=== PATIENT | female | born 1975 | race Caucasian/White ===

== ENCOUNTER 2019-09-28 23:15 | Emergency (ER) | payer SELFPAY ==
[~2019-09-28] VITALS: Ht 180.3 cm; Wt 90.9 kg
[2019-09-28 23:21] VITALS: Ht 180.3 cm; Wt 90.9 kg
[2019-09-28] MEDS ORDERED: SYNTHROID175 MCG PO (23:22)
[2019-09-28] MEDS ORDERED: LASIX20 MG PO (23:22)
[2019-09-28] MEDS ORDERED: METOPROLOL TART50 MG PO (23:22)
[2019-09-28] MEDS ORDERED: COUMADIN10 MG PO (23:23)
[2019-09-28] MEDS ORDERED: TOPAMAX50 MG PO (23:23)
[2019-09-28] MEDS ORDERED: PROZAC20 MG PO (23:24)
[2019-09-28] MEDS ORDERED: BAYER CHEWABLE81 MG PO (23:24)
[2019-09-29] MEDS ORDERED: VIBRAMYCIN 100100 MG PO (00:07)
[2019-09-29] MEDS ORDERED: VOLTAREN75 MG PO (00:07)
[2019-09-29] MEDS ORDERED: LEVOXYL175 MCG PO (00:07)
[2019-09-29] MEDS ORDERED: FUROSEMIDE20 MG PO (00:07)
[2019-09-29 00:55] VITALS: BP 142/88
== END 2019-09-29 00:55 | disposition home or self-care (01) ==
LOC: D.ER 23:15
DX: L03.211 Cellulitis of face (principal); I10 Essential (primary) hypertension; E03.9 Hypothyroidism, unspecified; Z72.0 Tobacco use; I25.2 Old myocardial infarction

== ENCOUNTER 2019-10-21 17:02 | Emergency (ER) | payer SELFPAY ==
[~2019-10-21] VITALS: Ht 180.3 cm; Wt 90.9 kg
[~2019-10-21 17:02] MED LIST: BAYER CHEWABLE81 MG PO; COUMADIN10 MG PO; FUROSEMIDE20 MG PO; LASIX20 MG PO; LEVOXYL175 MCG PO; METOPROLOL TART50 MG PO; PROZAC20 MG PO; SYNTHROID175 MCG PO; TOPAMAX50 MG PO; VIBRAMYCIN 100100 MG PO; VOLTAREN75 MG PO
[2019-10-21 17:14] VITALS: BP 125/70; Ht 180.3 cm; Wt 90.9 kg
[2019-10-21] MEDS ORDERED: CIPRODEX OTIC7.5 ML RIGHT EAR (17:25)
[2019-10-21] MEDS ORDERED: FLOXIN 0.3 % OTI5 ML RIGHT EAR (17:45)
== END 2019-10-21 17:32 | disposition home or self-care (01) ==
LOC: D.ER 17:02
DX: H60.91 Unspecified otitis externa, right ear (principal); I10 Essential (primary) hypertension; E07.9 Disorder of thyroid, unspecified; R00.0 Tachycardia, unspecified; Z72.0 Tobacco use

== ENCOUNTER 2019-11-17 15:46 | Observation (INO) | payer BC ==
[2019-11-17] VITALS (8 sets, daily range): BP systolic 116–137; BP diastolic 62–78; Ht 180.3 cm; Wt 77.3 kg
[~2019-11-17] VITALS: Ht 180.3 cm; Wt 77.3 kg
[~2019-11-17 15:46] MED LIST changes: +CIPRODEX OTIC7.5 ML RIGHT EAR; +FLOXIN 0.3 % OTI5 ML RIGHT EAR
[2019-11-17 16:34] LABS: BASOPHILS 0.5 % (0-2); HEMOGLOBIN 13.5 g/dL (12-16); IMMATURE GRANULOCYTES 0.1 % (0-5); MCHC 32.1 g/dL (31.0-37.0); MCV 99.5 fL (80.0-100.0); MEAN PLATELET VOLUME 11.7 fL (7.4-10.4); MONOCYTES 6.5 % (2-11); NEUTROPHILS 56.9 % (40-80); PLATELET COUNT 266 10x3/uL (130-400); RBC 4.22 10x6/uL (4.00-5.40); RDW 14.6 % (11.5-14.5); WBC 8.6 10x3/uL (4.8-10.8)
[2019-11-17 16:53] LABS: APTT 35.7 SECONDS (22.8-39.4); INR 1.22 (0.85-1.17); PROTIME 15.3 SECONDS (11.6-15.0)
[2019-11-17 16:56] LABS: CALC OSMOLALITY 281 mosm/kg (275-300); CALCIUM 8.6 mg/dL (8.5-10.1); CARBON DIOXIDE 30.4 mmol/L (21.0-32.0); CHLORIDE - SERUM 105 mmol/L (98-107); CREATININE - SERUM 0.8 mg/dL (0.6-1.3); GLUCOSE 113 mg/dL (74-106); POTASSIUM - SERUM 3.4 mmol/L (3.5-5.1); SODIUM 141 mmol/L (136-145); UREA NITROGEN 12 mg/dL (7-18); eGFR NON AFRICAN AMERICAN 82 mL/min (90-120)
[2019-11-17 17:12] LABS: ALBUMIN 3.7 g/dL (3.4-5.0); ALKALINE PHOSPHATASE 72 U/L (30-120); ALT (SGPT) 45 U/L (10-68); BILIRUBIN - TOTAL 0.42 mg/dL (0.2-1.3); CKMB 0.2 U/L (0.0-3.6); CREATINE KINASE 96 UL (21-215); MAGNESIUM - SERUM 2.2 mg/dL (1.8-2.4); PROTEIN - SERUM 7.8 g/dL (6.4-8.2)
[2019-11-17 17:13] LABS: TROPONIN-I < 0.017 ng/mL (0.000-0.060)
--- NOTE | 2019-11-17 19:18 | NUR ---
Assume care of patient at this time for shift change, receive report from Kayce MEDINA. patient has admission orders, awaiting bed assignment
--- NOTE | 2019-11-17 19:45 | NUR ---
REPORT GIVEN TO ADAM RIVERA
[2019-11-18 00:36] VITALS: BP 120/60
[2019-11-18 01:34] LABS: CKMB 0.4 U/L (0.0-3.6); CREATINE KINASE 77 UL (21-215)
[2019-11-18 01:35] LABS: TROPONIN-I < 0.017 ng/mL (0.000-0.060)
[2019-11-18 02:46] VITALS: BP 116/59
--- NOTE | 2019-11-18 03:39 | NUR ---
REPORT TO CLEO MEDINA WHO ASSUMES CARE AT THIS TIME
[2019-11-18 06:27] LABS: BASOPHILS 0.5 % (0-2); EOSINOPHILS 6.7 % (0-7); HEMATOCRIT 40.6 % (36.0-48.0); HEMOGLOBIN 12.6 g/dL (12-16); IMMATURE GRANULOCYTES 0.2 % (0-5); LYMPHOCYTES 28.8 % (15-50); MCH 31.3 pg (26.0-34.0); MCV 100.7 fL (80.0-100.0); MEAN PLATELET VOLUME 11.8 fL (7.4-10.4); MONOCYTES 6.2 % (2-11); NEUTROPHILS 57.6 % (40-80); PLATELET COUNT 248 10x3/uL (130-400); RBC 4.03 10x6/uL (4.00-5.40); RDW 14.7 % (11.5-14.5); WBC 8.2 10x3/uL (4.8-10.8)
[2019-11-18 07:00] VITALS: BP 159/83
--- NOTE | 2019-11-18 07:10 | NUR ---
ASSUMED CARE OF PT AT THIS TIME. PT LAYING IN BED QUIETLY. S/O AT BEDSIDE. NO S/S OF DISTRESS NOTED. DENIES NEEDS.
[2019-11-18 07:13] LABS: ALBUMIN 3.3 g/dL (3.4-5.0); ALKALINE PHOSPHATASE 70 U/L (30-120); ALT (SGPT) 39 U/L (10-68); BILIRUBIN - TOTAL 0.22 mg/dL (0.2-1.3); CALCIUM 8.3 mg/dL (8.5-10.1); CARBON DIOXIDE 27.9 mmol/L (21.0-32.0); CHLORIDE - SERUM 106 mmol/L (98-107); CKMB 0.2 U/L (0.0-3.6); CREATINE KINASE 70 UL (21-215); CREATININE - SERUM 0.9 mg/dL (0.6-1.3); POTASSIUM - SERUM 3.8 mmol/L (3.5-5.1); PROTEIN - SERUM 7.3 g/dL (6.4-8.2); SODIUM 141 mmol/L (136-145); UREA NITROGEN 15 mg/dL (7-18); eGFR NON AFRICAN AMERICAN 71 mL/min (90-120)
[2019-11-18 07:15] LABS: CALC OSMOLALITY 285 mosm/kg (275-300); GLUCOSE 162 mg/dL (74-106); TROPONIN-I < 0.017 ng/mL (0.000-0.060)
--- NOTE | 2019-11-18 10:25 | NUR ---
PATIENT HAS BEEN DISCHARGED BY DR PATEL. DISCHARGE PAPERWORK AND INSTRUCTIONS PROVIDED. IV CATH REMOVED WITH CATH INTACT
[2019-11-18 10:26] VITALS: BP 155/87
--- NOTE | 2019-11-19 16:48 | HP ---
PATIENT: BEKAH ANDERSON MEDICAL RECORD: [id number] ACCOUNT: [id number] LOCATION:[facility]- : 71 ADMISSION DATE: 11/17/19 PCP: ANGELES NEWBERRY MD HISTORY AND PHYSICAL EXAMINATION ADMITTING DIAGNOSES: 1. Chest pain. 2. Hypertension. 3. Family history of coronary artery disease. HISTORY OF PRESENT ILLNESS: Ms. Anderson has had chest discomfort on and off for the past 3-4 days. It is relatively typical discomfort, a weight-like sensation on her anterior chest. This is not positional, not worsened with exercise or any motion. It will come on randomly, sometimes with exertion, sometimes not with exertion. Her EKG is with T-wave inversion inferiorly suggestive of ongoing inferior ischemia. She is currently pain free. Her troponin is normal. PHYSICAL EXAMINATION: CONSTITUTIONAL/GENERAL APPEARANCE: Well nourished, well developed, appears stated age. EYES: Lids and conjunctivae noninjected. No discharge. No pallor. ENT: Lips within normal limit. No cyanosis. No pallor. NECK: Carotid arteries, bilateral normal upstroke. No bruits. No thrills. No jugular venous pressure or distention. CERVICAL LYMPH NODES: Nontender. Nonenlarged. THYROID: Not enlarged. No nodules. CARDIOVASCULAR: Precordial exam, nondisplaced. No heaves or pericardial thrills. Rate and rhythm, regular. Heart sounds, normal S1, normal S2. No S3, no gallop, no rub. Systolic murmur, not heard. Diastolic murmur, not heard. RESPIRATORY: Respiratory effort, unlabored. Normal curvature. No thoracic deformity. No chest wall tenderness. Percussion, resonant. Auscultation, clear. No wheezes, no rales, no rhonchi. ABDOMEN: Soft, nondistended, nontender. No abdominal pain, no vomiting and normal appetite. MUSCULOSKELETAL: No joint tenderness, normal gait, normal tone. SKIN: Warm and dry. OVERALL IMPRESSION: Chest pain with abnormal ECG. Chest pain is relatively typical for angina. We will risk stratify with stress testing, Cardiolite imaging. Further care depends upon findings of the stress test. TRANSINT:[id number] Voice Confirmation ID: [id number] DOCUMENT ID: [id number] ALICIA PATEL MD at 1648 CC: [id number] DICTATION DATE: 11/17/19 184 SQL APPLICATION DEVELOPER: 11/17/192107 DIS IN 11/18/19 [facility] [address] [place] [address]
--- NOTE | 2019-11-19 16:48 | DS ---
PATIENT:BEKAH ANDERSON :71 MEDICAL RECORD: [id number] DISCHARGE SUMMARY ADMISSION DATE: 11/17/19 DISCHARGE DATE: 11/18/19 DATE OF DISCHARGE: 11/18/2019. DIAGNOSIS: Chest pain. HOSPITAL COURSE: Ms. Anderson presents with chest pain; however, rules out for a cardiac event with normal troponins. She has a normal EKG. She had no further episodes of chest pain discharged home to follow up in 1 day for a stress test as an outpatient. TRANSINT:[id number] Voice Confirmation ID: [id number] DOCUMENT ID: [id number] ALICIA PATEL MD at 1648 CC: [id number] DICTATION DATE: 11/18/19923 SKIFF OPERATOR: 11/19/19 0533 [place] IN 11/18/19 [id number] [place] [address]
== END 2019-11-18 10:27 | disposition home or self-care (01) ==
LOC: D.ER 15:46 → OBSVTIME 18:27 → D.SDCHOLD 18:27 → D.ER 11-18 10:27
PROVIDERS: Family Medicine; ADMIT Internal Medicine Interventional Cardiology; ATTEND Internal Medicine Interventional Cardiology
DX: R07.9 Chest pain, unspecified (principal); I10 Essential (primary) hypertension; Z82.49 Family history of ischemic heart disease and other diseases of the circulatory system; R94.31 Abnormal electrocardiogram [ECG] [EKG]

== ENCOUNTER → 2019-11-19 13:49 | Outpatient (CLI) | payer BC ==
[2019-11-17 18:46] VITALS: BMI 23.7
--- NOTE | ~2019-11-19 | ST ---
PATIENT:BEKAH ROQUE MEDICAL RECORD: [id number] SEX: F LOCATION:[facility] ORDER #: ADMISSION DATE: 11/19/19 AGE OF PATIENT: 44 REFERRING PHYSICIAN: INTERPRETING PHYSICIAN: ALICIA PATEL MD DATE OF SERVICE: 11/19/2019 STRESS TEST INDICATION: Chest pain, angina, and shortness of breath. She was exercised on standard Sky protocol for 4 minutes, terminated due to chest pain, shortness of breath with [address] depression in stage I. OVERALL IMPRESSION: Positive for inducible ischemia. TRANSINT:[id number] Voice Confirmation ID: [id number] DOCUMENT ID: [id number] ALICIA PATEL MD CC: [id number] DICTATION DATE: 11/20/19 1251 CHEMISTRY LAB INSTRUCTOR: 11/21/19 0347 [facility] CLI 11/19/[address] [address]
== END | disposition home or self-care (01) ==
LOC: D.HCCARDIO 13:49
PROVIDERS: ATTEND Internal Medicine Interventional Cardiology
DX: R07.9 Chest pain, unspecified (principal)

== ENCOUNTER 2019-11-30 08:22 | Outpatient (CLI) | payer BC ==
[~2019-11-30] VITALS: Ht 180.3 cm; Wt 109.1 kg
--- NOTE | ~2019-11-30 | OP ---
PATIENT NAME: BEKAH ROQUE MEDICAL RECORD: [id number] :71 LOCATION:[facility] ADMISSION DATE: SURGEON: ALICIA PATEL MD DATE OF OPERATION: 11/30/2019 PROCEDURES: 1. PTCA stent RCA. 2. PTCA stent left circumflex. 3. IFR RCA. 4. IFR left circumflex. 5. Left heart catheterization. 6. Selective coronary angiography. 7. Left ventriculogram. INDICATION: Angina and coronary artery disease. PROCEDURE IN DETAIL: After informed consent was obtained and after a detailed description of risks, benefits as well as alternative therapies, the patient elected to proceed with angiogram and angioplasty. The right radial area was prepped and draped in normal sterile fashion. Right radial artery was cannulated via modified Seldinger technique with placement of 6-Tamazight sheath. All catheters exchanged through this sheath. FINDINGS: Left ventriculogram was performed in standard 30-degree TODD view, reveals global hypokinesis, ejection fraction in the 35-40% range. SELECTIVE CORONARY ANGIOGRAPHY: 1. Left main is with no significant angiographic disease. 2. Left anterior descending has multiple areas of 80% to 90% stenosis. 3. The left circumflex has a 70% stenosis in the mid vessel and IFR is abnormal. 4. Right coronary has an 80-85% stenosis in the mid vessel and IFR is abnormal. PTCA STENT OF THE RCA: The stent used is a 3.5 x 26 mm [place]. Result was 0% residual stenosis. PTCA STENT OF THE LEFT CIRCUMFLEX: The stent used was a 2.75 x 30 mm [place]. Result was 0% residual stenosis. OVERALL IMPRESSION: Successful PTCA stent of the RCA and left circumflex, both going from 70-85% initial stenosis to 0% residual. PLAN: PTCA stent of multiple areas in the LAD in the near future. TRANSINT:[id number] Voice Confirmation ID: [id number] DOCUMENT ID: [id number] ALICIA PATEL MD CC: [id number] DICTATION DATE: 11/30/19 1108 SALES ORDER CLERK: 11/30/192032 DEP CLI 11/30/19 [place] [address]
--- NOTE | ~2019-11-30 | HP ---
PATIENT: BEKAH ANDERSON MEDICAL RECORD: [id number] ACCOUNT: [id number] LOCATION:[facility] : 71 ADMISSION DATE: 11/30/19 PCP: ANGELES NEWBERRY MD HISTORY AND PHYSICAL EXAMINATION DATE OF SERVICE: 11/30/2019 DIAGNOSES: 1. Angina. 2. Abnormal stress test. 3. Hypertension. 4. Family history of coronary artery disease. HISTORY OF PRESENT ILLNESS: Mrs. Anderson began having chest pain, was relatively typical for angina, underwent stress testing which was abnormal, is now brought for cardiac catheterization. PHYSICAL EXAMINATION: CONSTITUTIONAL/GENERAL APPEARANCE: Well nourished, well developed, appears stated age. EYES: Lids and conjunctivae noninjected. No discharge. No pallor. ENT: Lips within normal limit. No cyanosis. No pallor. NECK: Carotid arteries, bilateral normal upstroke. No bruits. No thrills. No jugular venous pressure or distention. CERVICAL LYMPH NODES: Nontender. Nonenlarged. THYROID: Not enlarged. No nodules. CARDIOVASCULAR: Precordial exam, nondisplaced. No heaves or pericardial thrills. Rate and rhythm, regular. Heart sounds, normal S1, normal S2. No S3, no gallop, no rub. Systolic murmur, not heard. Diastolic murmur, not heard. RESPIRATORY: Respiratory effort, unlabored. Normal curvature. No thoracic deformity. No chest wall tenderness. Percussion, resonant. Auscultation, clear. No wheezes, no rales, no rhonchi. ABDOMEN: Soft, nondistended, nontender. No abdominal pain, no vomiting and normal appetite. MUSCULOSKELETAL: No joint tenderness, normal gait, normal tone. SKIN: Warm and dry. OVERALL IMPRESSION: Anginal symptomatology in an escalating fashion and abnormal stress test. We will proceed with coronary angiography. Further care depends upon findings of the angiography. TRANSINT:[id number] Voice Confirmation ID: [id number] DOCUMENT ID: [id number] ALICIA PATEL MD CC: [id number] DICTATION DATE: 11/30/19814 EXERCISE SCIENCE INTERNSHIP: 11/30/19917 [facility] [address] [place] [address]
--- NOTE | ~2019-11-30 | HEMODYNAMI ---
PATIENT:BEKAH ROQUE MEDICAL RECORD: [id number] : 71 LOCATION:[facility] ADMISSION DATE: 11/30/19 Generatedon:11/30/201911:10 Patient name: BEKAH ROQUE Patient #: [id number] SSN: [id number] : 1975 Date of study: 11/30/2019 Page: Of Hemodynamic Procedure Report Patient Data Patient Demographics Procedure consent was obtained First Name: BEKAH Gender: Female Last Name: JUDE : 1975 Patient #: [id number] Age: 44 year(s) Race: SSN: [id number] Additional ID: [id number] Contact details Address: [address] [place] [address] State: [place] City: [facility] Zip code: [address] Past Medical History Allergies: No known allergies Admission Admission Data Admission Date: 11/30/2019 Admission Time: 8:22 Arrival Date: 11/30/2019 Arrival Time: 0:00 Admit Source: Other Insurance Payor: Private health insurance [facility] #: [id number] Height (in.): 71 BSA: 2.28 (m2) Height (cm.): 180.34 BMI: 33.54 (kg/m2) Weight (lbs.): 240.5 Weight (kg.): 109.09 Lab Results Lab Result Date: 11/30/2019 Lab Result Time: 0:00 Biochemistry Name Units Result Min Max BUN mg/dl 14 --(--*-)-- 7 18 Creatinine mg/dl 0.8 --(-*--)-- 0.6 1.3 eGFR ml/min 82.16985 *-(----)-- 90 120 NONAFRICAN CBC Name Units Result Min Max Hematocrit % 42.6 --(*---)-- 42 54 Hemoglobin g/dl 13.9 --(*---)-- 13.5 17.5 Procedure Procedure Types Cath Procedure Diagnostic Procedure [facility] w/Coronaries FFR/IVUS FFR Initial Sedation Charges Moderate Sedation up to 30 minutes PCI Procedure Coronary Stent Coronary Stent Initial x2 Hemochron ACT Test Procedure Description Procedure Date Procedure Date: 11/30/2019 Procedure Start Time: 10:40 Procedure End Time: 11:08 Procedure Staff Name Function Epi Cao MD Performing Physician Vivien Hermosillo RT Monitor [facility] RT Scrub Colby Jimenez RN Nurse Procedure Data Cath Procedure Fluoroscopy Diagnostic fluoroscopy Total fluoroscopy Time: 6.3 time: 6.3 min min Diagnostic fluoroscopy Total fluoroscopy dose: 883 dose: 883 mGy mGy Contrast Material Contrast Material Type Amount (ml) Isovue 370 93 Entry Location Entry Primary Successful Side Size Upsize Upsize Entry Closure Jarquin ccessful Closure Location (Fr) 1 (Fr) 2 (Fr) Remarks Device Remarks Radial Right 6 Fr Mechanical artery Short Compression Estimated blood loss: 10 ml Diagnostic catheters Device Type Used For End Catheter Placement DIAGNOSTIC Cordova 110cm 5 Procedure Fr catheter ([id number]) Procedure Complications No complications Procedure Medications Medication Administration Route Dosage 0.9% NaCl I.V. 100 ml/hr Oxygen etCO2 Nasal cannula 2 l/min Heparin Flush Bag added to field 2 bags (1000units/500ml NS) Lidocaine 2% added to field 20 Radial Cocktail added to field 1 syringe (Verapamil 2mg/Nitro 400mcg/Heparin 1500units) Versed I.V. 2 mg Fentanyl I.V. 100 mcg Versed I.V. 2 mg Fentanyl I.V. 100 mcg Versed I.V. 2 mg Radial Cocktail I.A. 1 syringe (Verapamil 2mg/Nitro 400mcg/Heparin 1500units) Versed I.V. 1 mg Heparin Bolus I.V. 4000 units Integrilin (Bolus I.V. 9.5 ml 2mg/ml) Versed I.V. 1 mg Plavix P.O. 600 mg Hemodynamics Rest BSA: 2.28 (m2) HGB: 13.9 (g/dl) O2 Consumption: Estimated: 227.56 (ml/min) O2 Co nsumption indexed: Estimated:99.81 (ml/min/m) Heart Rate: 71 (bpm) Snapshots Pre Cath Intra NCS Post Cath Vital Signs Time Heart Resp SPO2 etCO2 NIBP (mmHg) Rhythm Pain Sedation Rate (ipm) (%) (mmHg) Status Level (bpm) 10:02:22 75 12 99 0 161/91(121) NSR 0 (11) 10(A) , No pain 10:06:40 77 14 95 17.3 154/91(112) NSR 0 (11) 10(A) , No pain 10:11:06 74 15 97 30.2 119/79(98) NSR 0 (11) 10(A) , No pain 10:16:11 75 14 97 19.6 132/93(110) NSR 0 (11) 10(A) , No pain 10:21:29 81 13 97 39.2 137/95(120) NSR 0 (11) 10(A) , No pain 10:25:47 71 10 96 37 147/89(120) NSR 0 (11) 10(A) , No pain 10:30:09 78 14 96 40.8 154/90(116) NSR 0 (11) 10(A) , No pain 10:35:37 76 14 97 33.2 159/103(125) NSR 0 (11) 10(A) , No pain 10:39:53 73 12 96 33.9 137/95(120) NSR 0 (11) 10(A) , No pain 10:44:11 77 14 92 33.1 129/78(99) NSR 0 (11) 10(A) , No pain 10:48:25 74 14 93 39.2 112/73(99) NSR 0 (11) 9(A) , No pain 10:52:41 75 20 92 13.5 111/66(102) NSR 0 (11) 10(A) , No pain 10:56:49 69 18 93 8.3 120/71(101) NSR 0 (11) 10(A) , No pain 11:01:05 78 10 92 33.9 126/83(93) NSR 0 (11) 10(A) , No pain 11:06:04 71 18 94 40.7 Measuring NSR 0 (11) 10(A) , No pain 11:06:08 73 18 94 43 138/69(95) NSR 0 (11) 10(A) , No pain Medications Time Medication Route Dose Verified Delivered Reason Not es Effectiveness by by 10:04:41 0.9% NaCl I.V. 100 Colby Colby Per physician ml/hr Barbara Jimenez RN RN 10:04:50 Oxygen etCO2 2 l/min Colby Colby for low 02 sats Nasal Lorigan Barbara cannula RN RN 10:05:02 Heparin Flush added 2 bags Colby Colby used for Bag to Barbara Jimenez procedure (1000units/500ml field RN RN NS) 10:05:12 Lidocaine 2% added 20ml Colby Colby for local to vial Lorigan Lorigan anesthetic field RN RN 10:05:21 Radial Cocktail added 1 Colby Colby for local (Verapamil to syringe Lorigan Lorigan anesthetic 2mg/Nitro field RN RN 400mcg/Heparin 1500units) 10:35:03 Fentanyl I.V. 100 mcg Colby Colby for sedation Barbara Jimenez RN RN 10:35:54 Versed I.V. 2 mg Colby Colby for sedation Barbara Jimenez RN RN 10:39:07 Versed I.V. 2 mg Colby Colby for sedation Barbara Jimenez RN RN 10:39:48 Fentanyl I.V. 100 mcg Colby Colby for sedation Barbara Jimenez RN RN 10:41:28 Versed I.V. 2 mg Colby Colby for sedation Barbara Jimenez RN RN 10:42:21 Radial Cocktail I.A. 1 Colby Epi for (Verapamil syringe Lorigan Tauth MD vasodilation 2mg/Nitro RN 400mcg/Heparin 1500units) 10:42:58 Versed I.V. 1 mg Colby Colby for sedation Barbara Jimenez RN RN 10:49:36 Heparin Bolus I.V. 4000 Colby Colby for units Lorigan Lorirena anticoagulation RN RN 10:50:02 Integrilin I.V. 9.5 ml Colby Colby for (Bolus 2mg/ml) Barbara Jimenez antiplatelet RN RN therapy 11:00:10 Versed I.V. 1 mg Colby Colby for sedation Barbara Jimenez RN RN 11:05:44 Plavix P.O. 600 mg Colby Colby for Barbara Jimenez antiplatelet RN RN therapy Procedure Log Time Note 9:36:31 Informed consent obtained and on chart 9:36:48 Procedure Status Elective Heart Cath (OP). 9:36:49 Time tracking: Regular hours (M-F 7:00 - 5:00) 9:36:52 Plan of Care:Hemodynamics will remain stable., Cardiac rhythm will remain stable., Comfort level will be maintained., Respiratory function will remain adequate., Patient/ family verbilizes understanding of procedure., Procedure tolerated without complication., Recovers from procedure without complications.. 9:40:53 Colby Jimenez RN sent for patient. Start room use. 9:45:14 Alarms reviewed by R. N. 9:45:15 Sharps counted by scrub and verified by R.N. 9:45:18 Risk of Mortality: .1 9:45:21 Risk of blood transfusion: .1 9:45:24 Risk of ANGELES: .1 9:45:36 Stress Test: no; N/A terminated due to chest pain 9:45:40 Lab results completed and on chart. 9:46:08 Lab Result : BUN 14 mg/dl 9:46:08 Lab Result : Creatinine 0.8 mg/dl 9:46:08 Lab Result : eGFR NONAFRICAN 82.82506 ml/min 9:46:08 Lab Result : Hemoglobin 13.9 g/dl 9:46:08 Lab Result : Hematocrit 42.6 % 9:46:37 Diagnostic Cath Status : Elective 9:46:57 Arrival Date: 11/30/2019 12:00:00 AM 9:46:57 Admit Source: Other 9:47:18 Insurance Payor : Private health insurance 9:47:21 Patient Height : 71 inches 9:47:28 Patient Weight : 240.5 lbs 9:49:38 H&P Date Dictated: 11/30/2019 Within 30 days and on chart.. 9:49:40 Pre-procedure instructions explained to patient. 9:49:40 Pre-op teaching completed and patient verbalized understanding. 9:49:42 Patient NPO since Midnight. 9:49:48 Patient allergic to No known allergies 9:53:20 Patient received from Pre/Post Procedure Room to CCL 1 Alert and oriented. Tansferred to table in Supine position. 9:53:21 Warm blankets applied, and naomi hugger turned on for patient comfort. 9:53:22 Correct patient and procedure confirmed by team. 9:53:24 ECG and BP/O2 sat monitors applied to patient. 9:53:29 Family in waiting room. 9:53:34 Is the patient allergic to Iodine/contrast media? No. 9:53:36 Was the patient premedicated? N/A 9:53:38 Is patient on blood thinner?No 9:53:40 Patient diabetic? No. 9:53:41 If diabetic: On Metformin? N/A 10:01:05 Vital chart was started 10:01:11 Rhythm: sinus rhythm 10:01:14 Baseline sample Acquired. 10:01:17 Full Disclosure recording started 10:04:41 0.9% NaCl 100 ml/hr I.V. was administered by Colby Jimenez RN; Per physician; Verbal order read back and verified. 10:04:50 Oxygen 2 l/min etCO2 Nasal cannula was administered by Colby Jimenez RN; for low 02 sats; Verbal order read back and verified. 10:05:02 Heparin Flush Bag (1000units/500ml NS) 2 bags added to field was administered by Colby Jimenez RN; used for procedure; Verbal order read back and verified. 10:05:12 Lidocaine 2% 20ml vial added to field was administered by Colby Jimenez RN; for local anesthetic; Verbal order read back and verified. 10:05:21 Radial Cocktail (Verapamil 2mg/Nitro 400mcg/Heparin 1500units) 1 syringe added to field was administered by Colby Jimenez RN; for local anesthetic; Verbal order read back and verified. 10:06:13 Patient not . Patient has had hysterectomy. 10:06:15 ----Pre-sedation anethsthesia assessment.---- 10:06:19 Previous problem with sedation/anesthesia? No ? 10:06:21 Snore? Yes 10:06:22 Sleep apnea? No 10:06:24 Deviated septum? No 10:06:25 Opens mouth fully? Yes 10:06:26 Sticks out tongue? Yes 10:06:28 Airway obstruction? No ? 10:06:29 Dentures? No ? 10:06:33 Pre procedure: right dorsailis pedis pulse 2+ Normal; easily identifiable; not easily obliterated 10:06:36 Modified David's test Ulnar < 7 seconds 10:06:38 Patient pain scale 0/10 ?. 10:06:47 IV patent on arrival in right antecubital with 0.9% NaCl at [facility]. 10:06:55 Right Radial & Right Groin area was prepped with chlora-prep and draped in sterile fashion 10:07:01 Baseline sample Acquired. 10:07:11 Use device set Radial Dx or PCI 10:07:13 ACIST Syringe (75392) opened to sterile field. 10:07:13 Medline Cath Pack ([id number]) opened to sterile field. 10:07:14 Bag Decanter (2002S) opened to sterile field. 10:07:14 ACIST Hand Control (47024) opened to sterile field. 10:07:15 ACIST Manifold (87465) opened to sterile field. 10:07:16 Tegaderm 4 x 4 (1626W) opened to sterile field. 10:07:17 MBrace Wrist Support ([id number]) opened to sterile field. 10:07:19 EMERALD Guide Wire (138-749) opened to sterile field. 10:07:21 SHEATH 6FR RAIN (6615081) opened to sterile field. 10:34:55 --------ALL STOP TIME OUT------ 10:34:55 Final Timeout: patient, procedure, and site verified with staff and physician. All members of the team are in agreement. 10:34:59 Right Radial & Right Groin site verified by team. 10:35:03 Fentanyl 100 mcg I.V. was administered by Colby Jimenez RN; for sedation; Verbal order read back and verified. 10:35:07 Fire Safety Assessment: A--An alcohol-based skin anteseptic being used preoperatively., C--Open oxygen or nitrous oxide is being used., D--An ESU, laser, or fiber-optic light is being used. 10:35:13 Physical assessment completed. ASA score P 2 - A patient with mild systemic disease as per Epi Cao MD. 10:35:17 2) 60-89 Mildly reduced kidney function, and other findings (as for stage 1) point to kidney disease. 10:35:22 Maximum allowable contrast dose (3.7 X eGFR X 0.75)227 ml. 10:35:28 Sedation plan: IV Moderate Sedation Medication:Versed, Fentanyl 10:35:54 Versed 2 mg I.V. was administered by Colby Jimenez RN; for sedation; Verbal order read back and verified. 10:39:05 Procedure started. 10:39:07 Versed 2 mg I.V. was administered by Colby Jimenez RN; for sedation; Verbal order read back and verified. 10:39:48 Fentanyl 100 mcg I.V. was administered by Colby Jimenez RN; for sedation; Verbal order read back and verified. 10:40:33 Local anesthetic to right radial artery with Lidocaine 2% by Epi Cao MD.INITIAL ACCESS ONLY 10:41:15 A 6 Fr Short sheath was inserted into the Right Radial artery 10:41:28 Versed 2 mg I.V. was administered by Colby Jimenez RN; for sedation; Verbal order read back and verified. 10:42:13 A DIAGNOSTIC Cordova 110cm 5 Fr catheter ([id number]) was advanced over the wire and used for Procedure. 10:42:18 LV gram done using TODD 10:42:21 Radial Cocktail (Verapamil 2mg/Nitro 400mcg/Heparin 1500units) 1 syringe I.A. was administered by Epi Cao MD; for vasodilation; Verbal order read back and verified. 10:42:21 Injector settings: Ml/sec: 5, Volume: 15, 10:42:58 Versed 1 mg I.V. was administered by Colby Jimenez RN; for sedation; Verbal order read back and verified. 10:43:08 EF : 40 % 10:43:27 RCA angiography performed. 10:43:30 Injector settings: Ml/sec: 3, Volume: 6, 10:44:14 Catheter removed. 10:44:33 GUIDE 6FR XBC 3 ([id number]) opened to sterile field. 10:44:34 6 Fr XBC 3 guide catheter was inserted over the wire 10:45:01 LCA angiography performed. 10:45:03 Injector settings: Ml/sec: 3, Volume: 6, 10:45:26 ACCDominant side:Co-Dominant 10:48:12 FFR/IFR wire advanced. 10:48:59 Wire removed. 10:49:15 J WIRE REINSERTED TO CANNULATE WITH CATHETER FULLY. 10:49:22 FFR/IFR wire advanced. 10:49:36 Heparin Bolus 4000 units I.V. was administered by Colby Jimenez RN; for anticoagulation; Verbal order read back and verified. 10:50:02 Integrilin (Bolus 2mg/ml) 9.5 ml I.V. was administered by Colby Jimenez RN; for antiplatelet therapy; Verbal order read back and verified. 10:50:14 mCirc lesion measured at .83 with IFR 10:50:25 Wire removed. 10:50:26 Guide catheter removed. 10:50:49 GUIDE 6FR AR 2.0 catheter ([id number]) opened to sterile field. 10:50:50 6 Fr AR 2 guide catheter was inserted over the wire 10:51:30 FFR/IFR wire advanced. 10:53:14 Wire advanced across lesion. 10:54:01 mRCA lesion measured at .82 with IFR 10:54:53 Pre PCI Site: [place] mRCA has 85% stenosis. 10:54:59 Pre PCI Site: [place] Circ has 70% stenosis. 10:57:36 Place stent Inflation Number: 1 A TUAN RX 3.5 x 22 stent ([id number]) was prepped and advanced across the Mid RCA . The stent was deployed at 15 ZAY for 0:00 (min:sec) . 10:58:24 Wire removed. 10:58:52 Guide catheter removed. 10:59:04 6 Fr XBC 3 guide catheter was inserted over the wire 10:59:29 CHOICE PT Extra Support 182cm wire ([id number]) opened to sterile field. 10:59:45 CHOICE ES 182 wire advanced. 11:00:10 Versed 1 mg I.V. was administered by Colby Jimenez RN; for sedation; Verbal order read back and verified. 11:01:40 Place stent Inflation Number: 1 A TUAN RX 2.75 x 30 stent ([id number]) was prepped and advanced across the Mid CX . The stent was deployed at 15 ZAY for 0:00 (min:sec) . 11:02:28 Stent catheter was removed intact over wire. 11:02:28 Wire removed. 11:02:29 Guide catheter removed. 11:02:32 ZEPHYR REGULAR TR BAND (907252) opened to sterile field. 11:03:53 Sheath removed intact; hemostasis achieved with Mechanical Compression to the Right Radial artery. 11:03:55 Procedure ended.(Physican Out) 11:04:04 Fluoroscopy time 06.30 minutes. 11:04:08 Flurop Dose total: 883 11:04:08 Fluoroscopy dose: 883 mGy 11:04:14 Dose Area Product 28268 mGy/cm. 11:04:19 Contrast amount:Isovue 370 93ml. 11:04:22 Maximum allowable dose exceeded? No. 11:04:23 Sharps counted by scrub and verified by R.N. 11:04:25 [place] band inflated with 10cc of air. 11:04:29 Post Procedure Pulses reassessed and unchanged 11:04:32 Post procedure: right dorsailis pedis pulse 2+ Normal; easily identifiable; not easily obliterated. 11:04:36 Post-procedure physical assessment completed. ASA score P 2 - A patient with mild systemic disease as per Epi Cao MD. 11:04:38 Post procedure rhythm: unchanged. 11:04:41 Estimated blood loss: 10 ml 11:04:42 Post procedure instruction explained to patient.Patient verbalizes understanding. 11:04:43 Patient needs reinforcement of post procedure teaching. 11:05:44 Plavix 600 mg P.O. was administered by Colby Jimenez RN; for antiplatelet therapy; Verbal order read back and verified. 11:05:56 Procedure type changed to Cath procedure, Diagnostic procedure, LHC, C w/Coronaries, FFR/IVUS, FFR Initial, Sedation Charges, Moderate Sedation up to 30 minutes, PCI procedure, Coronary Stent, Coronary Stent Initial x2, Hemochron ACT Test 11:07:49 Procedure and supply charges have been captured, reviewed, submitted and are correct. 11:07:52 Procedure Complication : No complications 11:07:55 Vital chart was stopped 11:07:56 [facility] Findings: MVD- PCI performed (see procedure note) 11:08:00 Operative report dictated upon procedure completion. 11:08:00 See physician's report for complete and final results. 11:08:02 Report given to Pre/Post Procedure Room. 11:08:06 Patient transfered to Pre/Post Procedure Room with Stretcher. 11:08:11 ACC-PCI Only Patient was given prescriptions, or instructed by Epi Cao MD to start/continue the following medications upon discharge: Plavix 11:08:14 Procedure ended. 11:08:14 Full Disclosure recording stopped 11:09:05 ACT drawn and resulted at (High) out of range seconds. (normal therapeutic range 180-240 seconds). 11:09:48 End room use (Document Last) 11:10:02 End room use (Document Last) 11:10:19 End room use (Document Last) Intervention Summary Intervention Notes Time ActionType Lesion and Equipment Used Action# Pressure Duration Attributes 10:57:36 Place stent Mid RCA TUAN RX 3.5 x 1 15 00:00 22 stent ([id number]) 11:01:40 Place stent Mid CX TUAN RX 2.75 x 1 15 00:00 30 stent ([id number]) Device Usage Item Name Manufacture Quantity Catalog Number Hospital Part Current M inimal Lot# / Charge Number Stock Stock Serial# Code ACIST Syringe Acist 1 14473 964925 493614 139869 2 0 (32395) Medical Systems Inc Medline Cath Medline 1 [id number] 064435 39576 417023 5 Pack ([id number]) Bag Decanter Microtek 1 2001S 517512 00564 864658 5 (2001S) Medical Inc. ACIST Hand Acist 1 32256 878019 612562 038272 5 Control Medical (99739) Systems Inc ACIST Manifold Acist 1 18010 344567 658385 807990 5 (70587) Medical Systems Inc Tegaderm 4 x 4 3M 1 1626W 072760 050621 208891 5 (1626W) MBrace Wrist Advanced 1 140-0250-00 553221 83572 130948 5 Support Vascular ([id number]) Dynamics EMERALD Guide Cardinal 1 502-455 971358 545762 085420 5 Wire (502-455) Health SHEATH 6FR Cardinal 1 5284303 991708 8862575 959798 5 RAIN (1679466) Health DIAGNOSTIC Terumo 1 40-5013 095109 924373 003577 5 Cordova 110cm 5 Fr catheter (306707) GUIDE 6FR XBC Cardinal 1 [id number] 590701 46360 612847 5 3 (15155848) Health GUIDE 6FR AR Medtronic 1 [id number] 525443 07692 295547 1 2.0 catheter (EL8IS98) TUAN RX 3.5 x Medtronic 1 [id number] 748159 8591110 132478 5 [id number] 22 stent ([id number]) CHOICE PT [place] 1 [id number] 409164 203641 923801 5 Extra Support Scientific 182cm wire ([id number]) TUAN RX 2.75 x Medtronic 1 [id number] 207687 3318789 215200 5 [id number] 30 stent ([id number]) ZEPHYR REGULAR Cardinal 1 403258 944738 8596677 113818 5 TR [facility] (974647) Signature Audit [place] Stage Time Signature Unsigned Intra-Procedure 11/30/2019 Vivien Hermosillo 11:10:02 AM RT(R) Intra-Procedure 11/30/2019 Colby 11:10:19 AM Barbara MEDINA Intra-Procedure 11/30/2019 Epi Cao 11:10:44 AM [facility] [address] [place] [address]
[2019-11-30 09:00] VITALS: BP 156/88; Ht 180.3 cm; Wt 109.1 kg
[2019-11-30 09:19] LABS: BASOPHILS 0.4 % (0-2); EOSINOPHILS 4.7 % (0-7); HEMATOCRIT 42.6 % (36.0-48.0); HEMOGLOBIN 13.9 g/dL (12-16); IMMATURE GRANULOCYTES 0.5 % (0-5); LYMPHOCYTES 31.6 % (15-50); MCH 31.8 pg (26.0-34.0); MCHC 32.6 g/dL (31.0-37.0); MCV 97.5 fL (80.0-100.0); MONOCYTES 5.7 % (2-11); NEUTROPHILS 57.1 % (40-80); PLATELET COUNT 257 10x3/uL (130-400); RBC 4.37 10x6/uL (4.00-5.40); RDW 13.8 % (11.5-14.5); WBC 8.1 10x3/uL (4.8-10.8)
[2019-11-30 09:29] LABS: ALT (SGPT) 42 U/L (10-68); CALC OSMOLALITY 278 mosm/kg (275-300); CALCIUM 8.6 mg/dL (8.5-10.1); CARBON DIOXIDE 26.9 mmol/L (21.0-32.0); CHLORIDE - SERUM 104 mmol/L (98-107); CHOL - HDL RATIO 5.5 ratio (2.3-4.1); CHOLESTEROL, TOTAL 232 mg/dL (0-200); CREATININE - SERUM 0.8 mg/dL (0.6-1.3); GLUCOSE 136 mg/dL (74-106); HDL CHOLESTEROL 42 mg/dL (32-96); LDL CHOLESTEROL 147 mg/dL (0-100); LDL-HDL RATIO 3.5 ratio (1.5-3.5); POTASSIUM - SERUM 3.8 mmol/L (3.5-5.1); SODIUM 138 mmol/L (136-145); TRIGLYCERIDE 218 mg/dL (30-200); UREA NITROGEN 14 mg/dL (7-18); eGFR NON AFRICAN AMERICAN 82 mL/min (90-120)
[2019-11-30] MEDS ORDERED: PLAVIX75 MG PO (11:16)
[2019-11-30] MEDS ORDERED: BAYER CHEWABLE81 MG PO (11:17)
--- NOTE | 2019-11-30 11:20 | NUR ---
REC'D TO ROOM 9 VIA STRETCHER, S/P MENHADEN VESSEL PILOT. MONITORS ESTAB. SEE COMPLAINT MANAGER. AT BS. ALARMS ON AND C/L IN REACH.
--- NOTE | 2019-11-30 11:36 | NUR ---
R WRIST SITE C/D/I, NO S/S OF BLEEDING OR SWELLING. HOB UP. PT GIVEN SANDWICH AND SPRITE PER REQUEST. VSS. C/L IN REACH.
--- NOTE | 2019-11-30 12:05 | NUR ---
R WRIST SITE C/D/I, VSS. DR. PATEL IN TO SEE PT - PLAN FOR PATIENT TO COME BACK THIS WEEK.
--- NOTE | 2019-11-30 12:20 | NUR ---
PT VOIDED 300CC CLEAR, YELLOW URINE ON BEDPAN. R WRIST SITE C/D/I, NO S/S BLEEDING OR HEMATOMA.
--- NOTE | 2019-11-30 12:50 | NUR ---
R WRIST SITE C/D/I, NO S/S BLEEDING OR HEMATOMA. SPOKE WITH ERIC IN DR. PATEL'S OFFICE - PROCEDURE SCHEDULED FOR 1129.
--- NOTE | 2019-11-30 13:00 | NUR ---
R WRIST SITE C/D/I, NO S/S BLEEDING OR HEMATOMA. PT WATCHING TV, DENIES NEEDS.
--- NOTE | 2019-11-30 13:15 | NUR ---
5CC AIR TOTAL REMOVED FROM Z BAND, NO S/S BLEEDING OR HEMATOMA.
--- NOTE | 2019-11-30 13:30 | NUR ---
R WRIST SITE C/D/I, NO S/S BLEEDING OR HEMATOMA, PT WATCHING TV, DENIES NEEDS/ C/L IN REACH.
--- NOTE | 2019-11-30 14:00 | NUR ---
3CC AIR REMOVED FROM Z BAND, NO S/S BLEEDING OR HEMATOMA. PT VERBALIZES S/S TO REPORT. VSS. C/L IN REACH.
--- NOTE | 2019-11-30 14:15 | NUR ---
TOTAL OF 5CC AIR REMOVED FROM Z BAND. NO S/S BLEEDING OR HEMATOMA.
--- NOTE | 2019-11-30 14:35 | NUR ---
ALL AIR REMOVED FROM Z BAND. NO S/S BLEEDING OR HEMATOMA. PIV D/C'D INTACT - DSG APPLIED.
--- NOTE | 2019-11-30 14:55 | NUR ---
ALL DISCHARGE INSTRUCTIONS INCLUDING PRE-PROCEDURE FOR SATURDAY AND MEDS - REVIEWED WITH PT AND SPOUSE. PT UP INDEPENDENTLY TO GET DRESSED AND GO TO BR.
--- NOTE | 2019-11-30 15:05 | NUR ---
PT D/C'D TO PRIVATE VEHICLE WITH ALL BELONGINGS, PAPER WORK AND PRESCRIPTIONS.
== END 2019-11-30 15:05 | disposition home or self-care (01) ==
LOC: D.CATH 08:22
PROVIDERS: ATTEND Internal Medicine Interventional Cardiology
DX: I25.119 Atherosclerotic heart disease of native coronary artery with unspecified angina pectoris (principal); R94.39 Abnormal result of other cardiovascular function study; I10 Essential (primary) hypertension; Z82.49 Family history of ischemic heart disease and other diseases of the circulatory system; R07.9 Chest pain, unspecified; R06.02 Shortness of breath

== ENCOUNTER 2019-12-11 09:07 | Outpatient (CLI) | payer BC ==
[~2019-12-11] VITALS: Ht 180.3 cm; Wt 104.5 kg
--- NOTE | ~2019-12-11 | OP ---
PATIENT NAME: BEKAH ROQUE MEDICAL RECORD: [id number] :71 LOCATION:D.CAT ADMISSION DATE: SURGEON: ALICIA PATEL MD DATE OF OPERATION: 12/11/2019 DATE OF SERVICE: 12/11/2019 PROCEDURES: 1. PTCA stent LAD. 2. IFR. 3. Selective coronary angiography. INDICATION: Angina and coronary artery disease. PROCEDURE PERFORMED: After informed consent was obtained and after detailed explanation of risks, benefits as well as alternative therapies, the patient elected to proceed with angiogram and angioplasty. The right femoral area was prepped and draped in normal sterile fashion. Right femoral artery was cannulated via modified Seldinger technique with placement of 6-Yi sheath. All catheters exchanged through this sheath. FINDINGS: The left anterior descending has 80+ percent stenosis times 2 proximally. IFR was abnormal. This was covered with a 3.0 x 34 mm [place]. Result was 0% residual stenosis. OVERALL IMPRESSION: Successful percutaneous transluminal coronary angioplasty stent of the left anterior descending going from 80% initial stenosis to 0% residual. TRANSINT:[id number] Voice Confirmation ID: [id number] DOCUMENT ID: [id number] ALICIA PATEL MD CC: [id number] DICTATION DATE: 12/11/19 1125 SEARCHLIGHT OPERATOR: 12/11/19 1313 REG [facility] [address] [id number]
--- NOTE | ~2019-12-11 | HEMODYNAMI ---
PATIENT:BEKAH ROQUE MEDICAL RECORD: [id number] : 71 LOCATION:TA ADMISSION DATE: 12/11/19 Generatedon:12/11/201911:27 Patient name: BEKAH ROQUE Patient #: [id number] SSN: [id number] : 1975 Date of study: 12/11/2019 Page: Of Hemodynamic Procedure Report Patient Data Patient Demographics Procedure consent was obtained First Name: BEKAH Gender: Female Last Name: JUDE : 1975 Patient #: [id number] Age: 44 year(s) Race: SSN: [id number] Additional ID: [id number] Contact details [address]: [address] [place] [address] State: [place] City: [place] Zip code: [address] Past Medical History History of disease Date Diagnosis Comments CAD Allergies Allergen Reaction Date Comments Reported Penicillins 12/11/2019 Admission Admission Data Admission Date: 12/11/2019 Admission Time: 9:07 Admit Source: Other Insurance Payor: Private health insurance Height (in.): 71 BSA: 2.24 (m2) Height (cm.): 180.34 BMI: 32.08 (kg/m2) Weight (lbs.): 230 Weight (kg.): 104.33 Current Diagnosis Diagnosis Description Unstable angina Lab Results Lab Result Date: 12/11/2019 Lab Result Time: 0:00 Biochemistry Name Units Result Min Max Creatinine mg/dl 0.8 --(-*--)-- 0.6 1.3 eGFR ml/min 82.35276 *-(----)-- 90 120 NONAFRICAN Procedure Procedure Types Cath Procedure Diagnostic Procedure FFR/IVUS FFR Initial Sedation Charges Moderate Sedation up to 15 minutes PCI Procedure Coronary Stent Coronary Stent Initial Hemochron ACT Test Procedure Description Procedure Date Procedure Date: 12/11/2019 Procedure Start Time: 11:13 Procedure End Time: 11:26 Procedure Staff Name Function Epi Cao MD Performing Physician Ammy Oliveira RN Monitor Trena Cade RN Nurse Rosalia Saxena RT Scrub Procedure Data Cath Procedure Fluoroscopy Diagnostic fluoroscopy Total fluoroscopy Time: 2.6 time: 2.6 min min Diagnostic fluoroscopy Total fluoroscopy dose: 357 dose: 357 mGy mGy Contrast Material Contrast Material Type Amount (ml) Isovue 300 55 Entry Location Entry Primary Successful Side Size Upsize Upsize Entry Closure Succes sful Closure Location (Fr) 1 (Fr) 2 (Fr) Remarks Device Remarks Femoral Right 6 Fr Exoseal artery Short Estimated blood loss: 10 ml Procedure Complications No complications Procedure Medications Medication Administration Route Dosage Oxygen etCO2 Nasal cannula 2 l/min Lidocaine 2% added to field 20 Heparin Flush Bag added to field 2 bags (1000units/500ml NS) 0.9% NaCl I.V. 100 ml/hr Versed I.V. 2 mg Fentanyl I.V. 100 mcg Versed I.V. 2 mg Fentanyl I.V. 100 mcg Heparin Bolus I.V. 4000 units Versed I.V. 2 mg Hemodynamics Rest BSA: 2.24 (m2) O2 Consumption: Estimated: 304.64 (ml/min) O2 Consumption indexed : Estimated:136 (ml/min/m) Pre Cath Intra NCS Post Cath Vital Signs Time Heart Resp SPO2 etCO2 NIBP (mmHg) Rhythm Pain Sedation Rate (ipm) (%) (mmHg) Status Level (bpm) 11:04:42 75 21 98 33.9 145/80(110) NSR 0 (11) 10(A) , No pain 11:09:00 77 15 94 31.7 126/80(100) NSR 0 (11) 10(A) , No pain 11:13:18 72 15 98 23.4 97/71(86) NSR 0 (11) 9(A) , No pain 11:18:21 72 15 93 37.7 129/82(105) NSR 0 (11) 9(A) , No pain 11:22:33 82 14 94 38.5 125/80(97) NSR 0 (11) 10(A) , No pain Medications Time Medication Route Dose Verified Delivered Reason Notes Effectiveness by by 11:03:44 Oxygen etCO2 2 Epi Albrecht used for Nasal l/min Kiley Cade header up cannula 11:03:50 Lidocaine 2% added 20ml Epi Chowdary for local to vial Kiley Cao MD anesthetic field 11:03:56 Heparin Flush added 2 Epi Chowdary used for Bag to bags Kiley Cao MD procedure (1000units/500ml field NS) 11:04:04 0.9% NaCl I.V. 100 Epi Buffie Per physician ml/hr Kiley Cade RN 11:07:02 Versed I.V. 2 mg Epi Buffie for sedation Kiley Cade RN 11:07:09 Fentanyl I.V. 100 Epi Buffie for sedation mcg Kiley Cade RN 11:12:03 Versed I.V. 2 mg Epi Buffie for sedation Kiley Cade RN 11:12:08 Fentanyl I.V. 100 Epi Zapataie for sedation mcg Kiley Cade RN 11:14:44 Heparin Bolus I.V. 4000 Epinorbert Zapataie for verif ied units Kiley Cade RN anticoagulation with dr cao 11:19:29 Versed I.V. 2 mg Epi Zapataie for sedation Kiley Cade RN Procedure Log Time Note 10:46:29 Informed consent obtained and on chart 10:52:06 ACC Patient presents with Unstable Angina CCS Anginal Class 2--Slight limitation of ordinary activity. 10:52:10 Procedure Status Elective Heart Cath (OP). 10:52:14 Trena Cade RN sent for patient. Start room use. 10:52:15 Time tracking: Regular hours (M-F 7:00 - 5:00) 10:52:21 Plan of Care:Hemodynamics will remain stable., Cardiac rhythm will remain stable., Comfort level will be maintained., Respiratory function will remain adequate., Patient/ family verbilizes understanding of procedure., Procedure tolerated without complication., Recovers from procedure without complications.. 10:52:33 Warm blankets applied, and naomi hugger turned on for patient comfort. 10:52:33 Correct patient and procedure confirmed by team. 10:52:40 Full Disclosure recording started 10:52:45 H&P Date Dictated: 12/11/2019 Within 30 days and on chart.. 10:52:46 Pre-procedure instructions explained to patient. 10:52:46 Pre-op teaching completed and patient verbalized understanding. 10:54:27 Patient allergic to Penicillins 10:54:34 Insurance Payor : Private health insurance 10:54:43 Admit Source: Other 10:54:49 Patient Height : 71 inches 10:54:54 Patient Weight : 230 lbs 10:54:58 Current Diagnosis : Unstable angina 10:55:18 Lab Result : eGFR NONAFRICAN 82.98159 ml/min 10:55:18 Lab Result : Creatinine 0.8 mg/dl 10:55:21 Diagnostic Cath Status : Elective 10:55:33 Patient received from Pre/Post Procedure Room to CCL 1 Alert and oriented. Tansferred to table in Supine position. 10:55:35 ECG and BP/O2 sat monitors applied to patient. 10:55:50 Family unavailable. 10:55:52 Patient NPO since Midnight. 10:55:55 Is the patient allergic to Iodine/contrast media? No. 10:55:56 Was the patient premedicated? N/A 10:55:58 Is patient on blood thinner?Yes 10:56:04 ACC The patient was administered the following blood thiners within the last 24 hours: ACCAspirin, ACCPlavix 10:56:07 Patient diabetic? No. 10:56:08 If diabetic: On Metformin? N/A 10:56:10 Patient not . Patient has had hysterectomy. 10:56:16 Previous problem with sedation/anesthesia? No ? 10:56:17 Snore? No 10:56:19 Sleep apnea? No 10:56:20 Deviated septum? No 10:56:21 Opens mouth fully? Yes 10:56:23 Sticks out tongue? Yes 10:56:26 Airway obstruction? No ? 10:56:29 Dentures? No ? 10:56:35 Pre procedure: right dorsailis pedis pulse 2+ Normal; easily identifiable; not easily obliterated 10:56:38 Patient pain scale 0/10 ?. 10:56:50 IV patent on arrival in right antecubital with 0.9% NaCl at KVO. 10:56:58 Stress Test: no; N/A ? 10:57:02 Right groin area was prepped with chlora-prep and draped in sterile fashion 10:57:04 Alarms reviewed by R. N. 10:57:04 Sharps counted by scrub and verified by R.N. 10:58:57 Risk of Mortality: 0.2 10:59:00 Risk of blood transfusion: 2.9 10:59:03 Risk of ANGELES: 0.7 11:02:51 Use device set Farmol PCI 11:02:53 SHEATH 6FR Swiss ([id number]) opened to sterile field. 11:03:00 INFLATOR Merit BasixCompak ([id number]) opened to sterile field. 11:03:18 EMERALD Guide Wire (899-120) opened to sterile field. 11:03:30 Vital chart was started 11:03:44 Oxygen 2 l/min etCO2 Nasal cannula was administered by Trena Cade RN; used for procedure; Verbal order read back and verified. 11:03:50 Lidocaine 2% 20ml vial added to field was administered by Epi Cao MD; for local anesthetic; Verbal order read back and verified. 11:03:56 Heparin Flush Bag (1000units/500ml NS) 2 bags added to field was administered by Epi Cao MD; used for procedure; Verbal order read back and verified. 11:04:04 0.9% NaCl 100 ml/hr I.V. was administered by Trena Cade RN; Per physician; Verbal order read back and verified. 11:06:18 --------ALL STOP TIME OUT------ 11:06:19 Final Timeout: patient, procedure, and site verified with staff and physician. All members of the team are in agreement. 11:06:20 Right groin site verified by team. 11:06:25 Fire Safety Assessment: A--An alcohol-based skin anteseptic being used preoperatively., C--Open oxygen or nitrous oxide is being used., D--An ESU, laser, or fiber-optic light is being used. 11:06:35 Physical assessment completed. ASA score P 2 - A patient with mild systemic disease as per Epi Cao MD. 11:06:47 2) 60-89 Mildly reduced kidney function, and other findings (as for stage 1) point to kidney disease. 11:06:50 Maximum allowable contrast dose (3.7 X eGFR X 0.75)228 ml. 11:06:56 Sedation plan: IV Moderate Sedation Medication:Versed, Fentanyl 11:07:02 Versed 2 mg I.V. was administered by Trena Cade RN; for sedation; Verbal order read back and verified. 11:07:09 Fentanyl 100 mcg I.V. was administered by Trena Cade RN; for sedation; Verbal order read back and verified. 11:12:03 Versed 2 mg I.V. was administered by Trena Cade RN; for sedation; Verbal order read back and verified. 11:12:08 Fentanyl 100 mcg I.V. was administered by Trena Cade RN; for sedation; Verbal order read back and verified. 11:13:11 Procedure started. 11:13:19 Local anesthetic to right femoral artery with Lidocaine 2% by Epi Cao MD.INITIAL ACCESS ONLY 11:13:34 A 6 Fr Short sheath was inserted into the Right Femoral artery 11:14:06 6 Fr XBLAD 3.5 guide catheter was inserted over the wire 11:14:14 GUIDE 6FR XBLAD 3.5 catheter ([id number]) opened to sterile field. 11:14:44 Heparin Bolus 4000 units I.V. was administered by Trena Cade RN; for anticoagulation; verified with dr cao Verbal order read back and verified. 11:15:15 UNABLE TO CANULATE W/ XBLAD 3.5 11:15:21 Guide catheter removed. 11:15:27 GUIDE 6FR XBLAD 4.0 catheter ([id number]) opened to sterile field. 11:16:25 6 Fr XBLAD 4 guide catheter was inserted over the wire 11:16:49 LCA angiography performed. 11:17:15 [place] Verrata Plus pressure wire (02025F) opened to sterile field. 11:18:21 FFR/IFR wire advanced. 11:19:18 Wire advanced across lesion. 11:19:29 Versed 2 mg I.V. was administered by Trena Cade RN; for sedation; Verbal order read back and verified. 11:19:37 mLAD lesion measured at 0.55 with IFR 11:19:46 ACC Pre-intervention GUILLE Flow is 3. 11:20:06 Pre PCI Site: [place] mLAD has 80% stenosis. 11:21:46 Place stent Inflation Number: 1 A TUAN RX 3.0 x 34 stent ([id number]) was prepped and advanced across the Mid LAD . The stent was deployed at 14 ZAY for 0:00 (min:sec) . 11:21:56 ACC Post-intervention GUILLE Flow is 3. 11:21:58 Stent catheter was removed intact over wire. 11::59 Wire removed. 11::59 Guide catheter removed. 11::29 EXOSEAL 6Fr (EX600) opened to sterile field. 11::41 Sheath removed intact; hemostasis achieved with Exoseal to the Right Femoral artery. 11:22:43 Procedure ended.(Physican Out) 11::41 Fluoroscopy time 02.60 minutes. 11::45 Flurop Dose total: 357 11::45 Fluoroscopy dose: 357 mGy 11:23:49 Dose Area Product 27620 mGy/cm. 11:23:54 Contrast amount:Isovue 300 55ml. 11::58 Maximum allowable dose exceeded? No. 11:24:04 Sharps counted by scrub and verified by R.N. 11:24:07 Insertion/operative site no bleeding no hematoma. 11:24:11 Post-op/insertion site Right Femoral artery dressed using a 4 x 4 and Tegaderm. 11:24:15 Post right femoral artery:stable, soft, clean and dry 11:24:17 Post Procedure Pulses reassessed and unchanged 11:24:20 Post procedure: right dorsailis pedis pulse 2+ Normal; easily identifiable; not easily obliterated. 11:24:22 Post-procedure physical assessment completed. ASA score P 2 - A patient with mild systemic disease as per Epi Cao MD. 11:24:25 Post procedure rhythm: unchanged. 11:24:28 Estimated blood loss: 10 ml 11:24:30 Post procedure instruction explained to patient.Patient verbalizes understanding. 11:24:30 Patient needs reinforcement of post procedure teaching. 11:25:07 Procedure type changed to Cath procedure, Diagnostic procedure, FFR/IVUS, FFR Initial, Sedation Charges, Moderate Sedation up to 15 minutes, PCI procedure, Coronary Stent, Coronary Stent Initial, Hemochron ACT Test 11::41 ACT drawn and resulted at 154 seconds. (normal therapeutic range 180-240 seconds). 11::56 Procedure and supply charges have been captured, reviewed, submitted and are correct. 11:26:09 Procedure Complication : No complications 11:26:11 Vital chart was stopped 11:26:13 [facility] Findings: MVD- PCI performed (see procedure note) 11:26:15 Operative report dictated upon procedure completion. 11:26:15 See physician's report for complete and final results. 11::17 Report given to Pre/Post Procedure Room. 11::19 Patient transfered to Pre/Post Procedure Room with Stretcher. 11::21 Procedure ended. 11::21 Full Disclosure recording stopped 11::28 ACC-PCI Only Patient was given prescriptions, or instructed by Epi Cao MD to start/continue the following medications upon discharge: Aspirin, Plavix 11::29 End room use (Document Last) 11::42 End room use (Document Last) 11:27:02 End room use (Document Last) Intervention Summary Intervention Notes Time ActionType Lesion and Equipment Used Action# Pressure Duration Attributes 11:21:46 Place stent Mid LAD TUAN RX 3.0 x 1 14 00:00 34 stent ([id number]) Device Usage Item Name Manufacture Quantity Catalog Hospital Part Current Minimal Lot# / Number Charge Number Stock Stock Serial# Code SHEATH 6FR Terumo 1 [id number] [id number] 40 Swiss ([id number]) INFLATOR Merit Merit 1 [id number] 588969 029661 466234 15 [facility] (BN5701) EMERALD Guide Cardinal 1 502-455 641567 759026 919489 5 Wire (502-455) Health GUIDE 6FR Cardinal 1 [id number] 337099 459684 095118 10 XBLAD 3.5 Health catheter ([id number]) GUIDE 6FR Cardinal 1 [id number] 972302 938825 219130 3 XBLAD 4.0 Health catheter ([id number]) [place] 1 [id number] 836634 [id number] 426340 5 Verrata Plus pressure wire (51148C) TUAN RX 3.0 x Medtronic 1 [id number] 853955 5571252 615615 5 [id number] 34 stent ([id number]) EXOSEAL 6Fr Cardinal 1 EX600 257572 325346 066958 10 (EX600) Health Signature Audit Scalf Stage Time Signature Unsigned Intra-Procedure 12/11/2019 Ammy Oliveira 11:26:42 AM RN Intra-Procedure 12/11/2019 Trena Cade RN 11:27:02 AM Intra-Procedure 12/11/2019 Epi Cao 11:27:33 [address] [address] [id number] [place] [id number]
[~2019-12-11 09:07] MED LIST changes: +PLAVIX75 MG PO
[2019-12-11 10:04] VITALS: BP 151/86; Ht 180.3 cm; Wt 104.5 kg
[2019-12-11 10:26] LABS: CALC OSMOLALITY 278 mosm/kg (275-300); CALCIUM 8.3 mg/dL (8.5-10.1); CARBON DIOXIDE 27.2 mmol/L (21.0-32.0); CHLORIDE - SERUM 104 mmol/L (98-107); CREATININE - SERUM 0.8 mg/dL (0.6-1.3); GLUCOSE 124 mg/dL (74-106); POTASSIUM - SERUM 3.8 mmol/L (3.5-5.1); SODIUM 139 mmol/L (136-145); UREA NITROGEN 13 mg/dL (7-18); eGFR NON AFRICAN AMERICAN 82 mL/min (90-120)
--- NOTE | 2019-12-11 11:18 | HP ---
PATIENT: BEKAH ANDERSON MEDICAL RECORD: [id number] ACCOUNT: [id number] LOCATION:TA : 71 ADMISSION DATE: 12/11/19 PCP: ANGELES NEWBERRY MD HISTORY AND PHYSICAL EXAMINATION ADMITTING DIAGNOSES: 1. Angina. 2. Coronary artery disease. 3. Recent percutaneous transluminal coronary angioplasty stent of the left circumflex and right coronary artery with significant disease left anterior descending. 4. Hypertension. 5. Hyperlipidemia. HISTORY OF PRESENT ILLNESS: Mrs. Anderson presents with unstable anginal symptomatology, found to have 3-vessel coronary artery disease, underwent successful PTCA stent of the RCA and left circumflex, has multiple areas of 80% to 90% stenosis of the LAD. She is now brought back for transcatheter revascularization of the LAD. PHYSICAL EXAMINATION: CONSTITUTIONAL/GENERAL APPEARANCE: Well nourished, well developed, appears stated age. EYES: Lids and conjunctivae noninjected. No discharge. No pallor. ENT: Lips within normal limit. No cyanosis. No pallor. NECK: Carotid arteries, bilateral normal upstroke. No bruits. No thrills. No jugular venous pressure or distention. CERVICAL LYMPH NODES: Nontender. Nonenlarged. THYROID: Not enlarged. No nodules. CARDIOVASCULAR: Precordial exam, nondisplaced. No heaves or pericardial thrills. Rate and rhythm, regular. Heart sounds, normal S1, normal S2. No S3, no gallop, no rub. Systolic murmur, not heard. Diastolic murmur, not heard. RESPIRATORY: Respiratory effort, unlabored. Normal curvature. No thoracic deformity. No chest wall tenderness. Percussion, resonant. Auscultation, clear. No wheezes, no rales, no rhonchi. ABDOMEN: Soft, nondistended, nontender. No abdominal pain, no vomiting and normal appetite. MUSCULOSKELETAL: No joint tenderness, normal gait, normal tone. SKIN: Warm and dry. OVERALL IMPRESSION: Unstable anginal symptomatology with significant disease of the left anterior descending. We will proceed with percutaneous transluminal coronary angioplasty stent of the left anterior descending. TRANSINT:[id number] Voice Confirmation ID: [id number] DOCUMENT ID: [id number] HISTORY AND PHYSICAL [id number] BEKAH ANDERSON JEFFREY MD at 2991 CC: [id number] DICTATION DATE: 12/11/19 1033 PUBLIC RELATIONS SUPERVISOR: 12/11/19 1046 [facility] [address] [place] [id number]
[2019-12-11 11:28] LABS: BASOPHILS 0.5 % (0-2); EOSINOPHILS 6.4 % (0-7); HEMATOCRIT 40.9 % (36.0-48.0); HEMOGLOBIN 12.9 g/dL (12-16); IMMATURE GRANULOCYTES 0.1 % (0-5); LYMPHOCYTES 24.8 % (15-50); MCH 31.3 pg (26.0-34.0); MCHC 31.5 g/dL (31.0-37.0); MCV 99.3 fL (80.0-100.0); MEAN PLATELET VOLUME 11.8 fL (7.4-10.4); MONOCYTES 7.9 % (2-11); NEUTROPHILS 60.3 % (40-80); PLATELET COUNT 259 10x3/uL (130-400); RBC 4.12 10x6/uL (4.00-5.40); RDW 13.5 % (11.5-14.5); WBC 7.5 10x3/uL (4.8-10.8)
--- NOTE | 2019-12-11 11:35 | NUR ---
PATIENT ARRIVED TO ROOM 4, PLACED ON CM AND 2L NC. VSS. RIGHT GROIN DRESSING IS CDI, NO S/S OF BLEEDING OR HEMATOMA.
--- NOTE | 2019-12-11 11:50 | NUR ---
PATIENT AWAKE, VSS ON 2L NC. RIGHT GROIN DRESSING IS CDI, NO S/S OF BLEEDING OR HEMATOMA. NO C/O PAIN, NUMBNESS, OR TINGLING. FIANCE PRESENT AT BEDSIDE. TOLERATING PO FLUIDS, NO N/V.
--- NOTE | 2019-12-11 12:20 | NUR ---
PATIENT INTERMITTENTLY RESTING, VSS ON 1L NC. RIGHT GROIN DRESSING IS CDI, NO S/S OF BLEEDING OR HEMATOMA. NO C/O PAIN, NUMBNESS, OR TINGLING. FAMILY PRESENT AT BEDSIDE.
--- NOTE | 2019-12-11 12:50 | NUR ---
PATIENT RESTING, VSS ON ROOM AIR. RIGHT GROIN DRESSING IS CDI, NO S/S OF BLEEDING OR HEMATOMA. NO C/O PAIN, NUMBNESS, OR TINGLING. SPOUSE PRESENT AT BEDSIDE. NO N/V.
--- NOTE | 2019-12-11 13:20 | NUR ---
PATIENT AWAKE, EATING BURRITO BROUGHT IN BY FIANCE. VSS ON ROOM AIR. RIGHT GROIN DRESSING IS CDI, NO S/S OF BLEEDING OR HEMATOMA. NO C/O PAIN, NUMBNESS, OR TINGLNIG. NO N/V. PHYSICIAN AT BEDSIDE TO UPDATE PATIENT AND FIANCE.
--- NOTE | 2019-12-11 13:50 | NUR ---
PATIENT RESTING, VSS ON ROOM AIR. RIGHT GROIN DRESSING IS CDI, NO S/S OF BLEEDING OR HEMATOMA. NO C/O PAIN, NUMBNESS, OR TINGLING. 2+ PEDAL PULSES. NO N/V.
--- NOTE | 2019-12-11 14:20 | NUR ---
HEAD OF BED ELEVATED TO 30 DEGREES. RIGHT GROIN DRESSING IS CDI, NO S/S OF BLEEDING OR HEMATOMA. NO C/O PAIN, NUMBNESS, OR TINGLING. NO N/V. VSS ON ROOM AIR. FIANCE PRESENT AT BEDSIDE.
--- NOTE | 2019-12-11 14:50 | NUR ---
HEAD OF BED ELEVATED TO 90 DEGREES. PATIENT TOLERATING PO FLUIDS AND FOOD, NO N/V. VSS ON ROOM AIR. RIGHT GROIN DRESSING IS CDI, NO S/S OF BLEEDING OR HEMATOMA. NO C/O PAIN, NUMBNESS, OR TINGLING. WRITTEN AND VERBAL DISCHARGE EDUCATION GIVEN TO PATIENT AND FAMILY, BOTH VOICE UNDERSTANDING.
--- NOTE | 2019-12-11 15:10 | NUR ---
PATIENT VOIDED WITHOUT DIFFICULTY. RIGHT GROIN DRESSING IS CDI, NO S/S OF BLEEDING OR HEMATOMA. PERIPHERAL IV REMOVED WITH CATHLON INTACT. PATIENT DISCONNECTED FROM MONITORS TO GET DRESSED.
--- NOTE | 2019-12-11 15:30 | NUR ---
PATIENT TRANSPORTED VIA WHEELCHAIR TO CAR WITH FIANCE DRIVING, ALL BELONGINGS WITH PATIENT.
== END 2019-12-11 15:30 ==
LOC: D.CATH 09:07
PROVIDERS: ATTEND Internal Medicine Interventional Cardiology
DX: I25.119 Atherosclerotic heart disease of native coronary artery with unspecified angina pectoris (principal); I10 Essential (primary) hypertension; E78.5 Hyperlipidemia, unspecified; Z95.5 Presence of coronary angioplasty implant and graft

== ENCOUNTER 2019-12-17 10:39 | Inpatient (IN) | payer BC ==
[~2019-12-17] VITALS: Ht 180.3 cm; Wt 111.2 kg
[2019-12-17] VITALS (14 sets, daily range): BP systolic 119–152; BP diastolic 64–105; Ht 180.3 cm; Wt 111.2 kg
--- NOTE | ~2019-12-17 | HEMODYNAMI ---
PATIENT:BEKAH ROQUE MEDICAL RECORD: [id number] : 71 [facility] DATE: 12/17/19 Generatedon:12/17/201912:03 Patient name: BEKAH ROQUE Patient #: [id number] SSN: [id number] : 1975 Date of study: 12/17/2019 Page: Of Hemodynamic Procedure Report Patient Data Patient Demographics Procedure consent was obtained First Name: BEKAH Gender: Female Last Name: JUDE : 1975 Patient #: [id number] Age: 44 year(s) Race: SSN: [id number] Additional ID: [id number] Contact details [address]: [address] [place] [address] State: [place] City: [place] Zip code: [address] Past Medical History History of disease Date Diagnosis Comments CAD Allergies Allergen Reaction Date Comments Reported Penicillins 12/11/2019 Other allergy 12/17/2019 PENICILLIN Admission Admission Data Admission Date: 12/17/2019 Admission Time: 10:39 Arrival Date: 12/17/2019 Arrival Time: 0:00 Admit Source: Emergency Insurance Payor: Private department health insurance [facility] #: [id number] Height (in.): 70.87 BSA: 2.24 (m2) Height (cm.): 180 BMI: 32.41 (kg/m2) Weight (lbs.): 231.49 Weight (kg.): 105 Lab Results Lab Result Date: 12/17/2019 Lab Result Time: 0:00 Biochemistry Name Units Result Min Max BUN mg/dl 11 --(-*--)-- 7 18 Creatinine mg/dl 0.8 --(-*--)-- 0.6 1.3 eGFR ml/min 70.38655 *-(----)-- 90 120 NONAFRICAN CBC Name Units Result Min Max Hematocrit % 41 -*(----)-- 42 54 Hemoglobin g/dl 13 -*(----)-- 13.5 17.5 Procedure Procedure Types Cath Procedure Diagnostic Procedure Sedation Charges Moderate Sedation up to 45 minutes PCI Procedure AMI/SVG/CLASSIFIER TENDER PTCA or Stent AMI-BMS/RAHEEL Initial Hemochron ACT Test Procedure Description Procedure Date Procedure Date: 12/17/2019 Procedure Start Time: 11:13 Procedure End Time: 11:57 Procedure Staff Name Function Jean-Pierre Caba MD Performing Physician Vivien Hermosillo RT Monitor Rosalia Saxena RT Scrub Colby Jimenez RN Nurse Trena Cade RN Digital Content Coordinator Procedure Data Cath Procedure Fluoroscopy Diagnostic fluoroscopy Total fluoroscopy Time: time: 12.6 min 12.6 min Diagnostic fluoroscopy Total fluoroscopy dose: dose: 1594 mGy 1594 mGy Contrast Material Contrast Material Type Amount (ml) Isovue 370 115 Entry Location Entry Primary Successful Side Size Upsize Upsize Entry Closure Succes sful Closure Location (Fr) 1 (Fr) 2 (Fr) Remarks Device Remarks Femoral Right 6 Fr Exoseal artery Short Estimated blood loss: 10 ml Diagnostic catheters Device Type Used For End Catheter Placement MULTIPACK 3DRC 5Fr Procedure catheter MULTIPACK JL 4.0 5Fr Procedure catheter Procedure Complications No complications Procedure Medications Medication Administration Route Dosage 0.9% NaCl I.V. 100 ml/hr Oxygen NC 2 l/min Heparin Flush Bag added to field 2 bags (1000units/500ml NS) Lidocaine 2% added to field 20 Versed I.V. 2 mg Fentanyl I.V. 100 mcg Heparin Bolus I.V. 87609 units Versed I.V. 1 mg Versed I.V. 1 mg Versed I.V. 1 mg Versed I.V. 1 mg Nitroglycerin IC/IA I.C. 100 mcg Integrilin (Bolus I.V. 9.5 ml 2mg/ml) Fentanyl I.V. 100 mcg Integrilin (Bolus wasted 0.5 ml 2mg/ml) Integrilin Drip I.V. drip 16.8 ml/hr (75mg/100ml) Effient P.O. 60 mg Hemodynamics Rest BSA: 2.24 (m2) O2 Consumption: Estimated: 304.64 (ml/min) O2 Consumption indexed : Estimated:136 (ml/min/m) Pre Cath Intra NCS Post Cath Vital Signs Time Heart Resp SPO2 etCO2 NIBP (mmHg) Rhythm Pain Status Sedation Rate (ipm) (%) (mmHg) Level (bpm) 11:08:35 88 24 88 0 127/90(117) NSR 10 (11) , 10(A) Unimaginable unspeakable 11:12:55 96 22 92 20.8 135/87(101) NSR 10 (11) , 10(A) Unimaginable unspeakable 11:17:19 96 15 93 14.9 137/79(98) NSR 10 (11) , 9(A) Unimaginable unspeakable 11:22:26 96 18 91 11.9 134/91(109) NSR 10 (11) , 9(A) Unimaginable unspeakable 11:26:49 97 17 92 33.5 139/90(117) NSR 10 (11) , 9(A) Unimaginable unspeakable 11:31:09 99 18 89 16.3 126/91(119) NSR 10 (11) , 9(A) Unimaginable unspeakable 11:36:26 100 24 93 32 166/114(144) NSR 10 (11) , 9(A) Unimaginable unspeakable 11:40:52 98 23 91 27.5 139/92(117) NSR 10 (11) , 10(A) Unimaginable unspeakable 11:45:19 101 15 90 13.4 141/83(116) NSR 10 (11) , 9(A) Unimaginable unspeakable 11:49:45 104 13 91 27.5 132/84(105) NSR 10 (11) , 9(A) Unimaginable unspeakable 11:54:05 103 17 95 38 137/86(106) NSR 10 (11) , 9(A) Unimaginable unspeakable 11:58:29 101 14 97 14.1 116/81(107) NSR 10 (11) , 9(A) Unimaginable unspeakable Medications Time Medication Route Dose Verified Delivered Reason Notes Effectiveness by by 11:10:35 0.9% NaCl I.V. 100 Buffie Buffie Per physician ml/hr Alyssia Cade RN 11:11:09 Oxygen NC 2 Buffie Colby for low 02 sats l/min Alyssia Jimenez RN 11:11:21 Heparin Flush added 2 bags Buffie Colby used for Bag to Alyssia Jimenez procedure (1000units/500ml RN NS) 11:11:31 Lidocaine 2% added 20ml Buffie Colby for local to vial Alyssia Jimenez anesthetic RN 11:11:46 Versed I.V. 2 mg Buffie Colby for sedation Alyssia RN Barbara RN 11:11:55 Fentanyl I.V. 100 Buffie Colby for sedation mcg Alyssia Jimenez RN 11:15:39 Heparin Bolus I.V. 10,000 Buffie Colby for units Alyssia Jimenez anticoagulation RN 11:15:47 Versed I.V. 1 mg Buffie Colby for sedation Alyssia RN Barbara RN 11:22:42 Versed I.V. 1 mg Buffie Colby for sedation Alyssia Jimenez RN 11:27:37 Versed I.V. 1 mg Buffie Colby for sedation Alyssia RN Barbara RN 11:36:58 Versed I.V. 1 mg Buffie Colby for sedation Alyssia Jimenez RN 11:37:26 Nitroglycerin I.C. 100 Buffie Jean-Pierre for IC/IA mcg Alyssia Caba MD vasodilation 11:40:52 Integrilin I.V. 9.5 ml Buffie Colby for (Bolus 2mg/ml) Alyssia Jimenez antiplatelet RN therapy 11:41:09 Fentanyl I.V. 100 Buffie Colby for chest pain mcg Alyssia Jimenez RN 11:41:45 Integrilin wasted 0.5 ml Buffie Colby to sharp's (Bolus 2mg/ml) Alyssia Jimenez RN 11:56:34 Integrilin Drip I.V. 16.8 Buffie Colby for (75mg/100ml) drip ml/hr Alyssia Jimenez antiplatelet RN therapy 11:56:50 Effient P.O. 60 mg Buffie Colby for Alyssia Jimenez antiplatelet RN therapy Procedure Log Time Note 10:54:30 Informed consent obtained and on chart 10:54:54 Procedure Status Emergent Heart Cath (AMI). 10:54:55 Time tracking: Regular hours (M-F 7:00 - 5:00) 10:54:59 Plan of Care:Hemodynamics will remain stable., Cardiac rhythm will remain stable., Comfort level will be maintained., Respiratory function will remain adequate., Patient/ family verbilizes understanding of procedure., Procedure tolerated without complication., Recovers from procedure without complications.. 10:55:00 Trena Cade RN sent for patient. Start room use. 10:55:06 H&P Date Dictated: 12/17/2019 ER History on chart.. 10:58:18 Patient Weight : 231.49 lbs 10:58:21 Patient Height : 70.87 inches 10:58:24 Admit Source: Emergency department 10:59:07 ACC Patient presents with STEMI CCS Anginal Class 2--Slight limitation of ordinary activity. 10:59:11 Pre-procedure instructions explained to patient. 10:59:12 Pre-op teaching completed and patient verbalized understanding. 10:59:13 Family unavailable. 10:59:50 Patient allergic to Other allergyPENICILLIN 10:59:56 Alarms reviewed by R. N. 10:59:56 Sharps counted by scrub and verified by R.N. 11:00:01 Use device set Femoral Dx 11:01:56 Patient received from ED to CCL 1 Alert and oriented. Tansferred to table in Supine position. 11:02:08 Warm blankets applied, and naomi hugger turned on for patient comfort. 11:02:08 Correct patient and procedure confirmed by team. 11:02:09 ECG and BP/O2 sat monitors applied to patient. 11:02:22 Is the patient allergic to Iodine/contrast media? No. 11:02:24 Was the patient premedicated? No 11:02:26 Is patient on blood thinner?Yes 11:02:29 ACC The patient was administered the following blood thiners within the last 24 hours: ACCPlavix 11:02:31 Patient diabetic? No. 11:02:33 If diabetic: On Metformin? N/A 11:02:56 Patient not . Patient has had hysterectomy. 11:02:57 ----Pre-sedation anethsthesia assessment.---- 11:03:01 Previous problem with sedation/anesthesia? No ? 11:03:02 Snore? Yes 11:03:03 Sleep apnea? No 11:03:04 Deviated septum? No 11:03:05 Opens mouth fully? Yes 11:03:07 Sticks out tongue? Yes 11:03:09 Airway obstruction? No ? 11:03:11 Dentures? No ? 11:03:15 Pre procedure: right dorsailis pedis pulse 2+ Normal; easily identifiable; not easily obliterated 11:03:21 Patient pain scale 10/10 CHEST PAIN. 11:03:27 Stress Test: no; N/A ? 11:03:34 Left groin area was prepped with chlora-prep and draped in sterile fashion 11:03:43 IV patent on arrival in left antecubital with 0.9% NaCl at [facility]. 11:03:48 Lab results completed and on chart. 11:05:48 Arrival Date: 12/17/2019 12:00:00 AM 11:05:58 Insurance Payor : Private health insurance 11:07:03 Lab Result : eGFR NONAFRICAN 70.21213 ml/min 11:07:03 Lab Result : Hemoglobin 13 g/dl 11:07:03 Lab Result : BUN 11 mg/dl 11:07:03 Lab Result : Hematocrit 41 % 11:07:19 Vital chart was started 11:07:20 Full Disclosure recording started 11:07:28 ACIST Syringe (87371) opened to sterile field. 11:07:28 Bag Decanter (2002S) opened to sterile field. 11:07:29 Medline Cath Pack ([id number]) opened to sterile field. 11:07:30 ACIST Hand Control (31609) opened to sterile field. 11:07:31 ACIST Manifold (72669) opened to sterile field. 11:07:31 DIAGNOSTIC Multipack 5Fr catheter set (DX3333) opened to sterile field. 11:07:33 EMERALD Guide Wire (139-201) opened to sterile field. 11:07:46 --------ALL STOP TIME OUT------ 11:07:47 Final Timeout: patient, procedure, and site verified with staff and physician. All members of the team are in agreement. 11:07:50 Left groin site verified by team. 11:07:54 Fire Safety Assessment: A--An alcohol-based skin anteseptic being used preoperatively., C--Open oxygen or nitrous oxide is being used., D--An ESU, laser, or fiber-optic light is being used. 11:07:57 Physical assessment completed. ASA score P 2 - A patient with mild systemic disease as per Jean-Pierre Caba MD. 11:08:03 2) 60-89 Mildly reduced kidney function, and other findings (as for stage 1) point to kidney disease. 11:08:06 Maximum allowable contrast dose (3.7 X eGFR X 0.75)197 ml. 11:08:11 Sedation plan: IV Moderate Sedation Medication:Versed, Fentanyl 11:09:13 Rhythm: sinus rhythm , w/ ST elevation 11:10:35 0.9% NaCl 100 ml/hr I.V. was administered by Trena Cade RN; Per physician; Verbal order read back and verified. 11:11:09 Oxygen 2 l/min NC was administered by Colby Jimenez RN; for low 02 sats; Verbal order read back and verified. 11:11:21 Heparin Flush Bag (1000units/500ml NS) 2 bags added to field was administered by Colby Jimenez RN; used for procedure; Verbal order read back and verified. 11:11:31 Lidocaine 2% 20ml vial added to field was administered by Colby Jimenez RN; for local anesthetic; Verbal order read back and verified. 11:11:46 Versed 2 mg I.V. was administered by Colby Jimenez RN; for sedation; Verbal order read back and verified. 11:11:55 Fentanyl 100 mcg I.V. was administered by Colby Jimenez RN; for sedation; Verbal order read back and verified. 11:12:50 Procedure started. 11:13:57 Local anesthetic to left femerol artery with Lidocaine 2% by Jean-Pierre Caba MD.INITIAL ACCESS ONLY 11:15:16 Use device set LORI PCI 11:15:39 Heparin Bolus 10,000 units I.V. was administered by Colby Jimenez RN; for anticoagulation; Verbal order read back and verified. 11:15:40 SHEATH 6FR [place] (FWK517) opened to sterile field. 11:15:44 A 6 Fr Short sheath was inserted into the Right Femoral artery 11:15:45 A MULTIPACK JL 4.0 5Fr catheter was advanced over the wire and used for Procedure. 11:15:47 Versed 1 mg I.V. was administered by Colby Jimenez RN; for sedation; Verbal order read back and verified. 11:17:10 LCA angiography performed. 11:17:43 INFLATOR Merit BasixCompak (PS5736) opened to sterile field. 11:17:45 TUBING High Pressure Extension Tubing (Caba) ([id number]) opened to sterile field. 11:17:51 BMW 300cm Phelps 2 J wire ([id number]) opened to sterile field. 11:17:58 Catheter exchanged over wire. 11:19:07 A MULTIPACK 3DRC 5Fr catheter was advanced over the wire and used for Procedure. 11:19:50 RCA angiography performed. 11:20:35 ACCDominant side:Right 11:20:37 Catheter exchanged over wire. 11:21:19 Proceeding to intervention. 11:21:23 GUIDE 6FR XBLAD 3.5 catheter ([id number]) opened to sterile field. 11:21:41 6 Fr XBLAD 3.5 guide catheter was inserted over the wire 11::21 Quick Combo opened to sterile field. 11:22:42 Versed 1 mg I.V. was administered by Colby Jimenez RN; for sedation; Verbal order read back and verified. 11:23:43 BMW 300 wire advanced. 11:25:18 Wire advanced across lesion. 11:25:22 Pre PCI Site: [place] LAD has 100% stenosis. 11:27:37 Versed 1 mg I.V. was administered by Colby Jimenez RN; for sedation; Verbal order read back and verified. 11:28:36 The EUPHORA 2.5 x 20 Balloon ([id number]) was advanced and then removed because of failure to cross lesion 11:33:07 Inflate balloon Inflation number: 1 A EMERGE OTW 2.5 x 15 balloon ([id number]) was prepped and advanced across the Prox LAD , then inflated to 10 ZAY for 0:00 (min:sec) . 11:33:36 Inflation number: 2 The EMERGE OTW 2.5 x 15 balloon ([id number]) was reinflated across the Prox LAD , to 10 AZY for 0:00 (min:sec) . 11:33:57 Inflation number: 3 The EMERGE OTW 2.5 x 15 balloon ([id number]) was reinflated across the Prox LAD , to 12 ZAY for 0:00 (min:sec) . 11:36:54 Balloon removed over the wire. 11:36:58 Versed 1 mg I.V. was administered by Colby Jimenez RN; for sedation; Verbal order read back and verified. 11:37:26 Nitroglycerin IC/IA 100 mcg I.C. was administered by Jean-Pierre Caba MD; for vasodilation; Verbal order read back and verified. 11:40:20 Inflation number: 4 The EMERGE OTW 2.5 x 15 balloon ([id number]) was reinflated across the Prox LAD , to 12 ZAY for 0:00 (min:sec) . 11:40:52 Integrilin (Bolus 2mg/ml) 9.5 ml I.V. was administered by Colby Jimenez RN; for antiplatelet therapy; Verbal order read back and verified. 11:40:53 Inflation number: 5 The EMERGE OTW 2.5 x 15 balloon ([id number]) was reinflated across the Prox LAD , to 13 ZAY for 0:00 (min:sec) . 11:41:09 Fentanyl 100 mcg I.V. was administered by Colby Jimenez RN; for chest pain; Verbal order read back and verified. 11:41:23 Inflation number: 6 The EMERGE OTW 2.5 x 15 balloon ([id number]) was reinflated across the Prox LAD , to 13 ZAY for 0:00 (min:sec) . 11:41:45 Integrilin (Bolus 2mg/ml) 0.5 ml wasted was administered by Colby Jimenez RN; to sharp's; Verbal order read back and verified. 11:43:52 Balloon removed over the wire. 11:49:49 Place stent Inflation Number: 1 A TUAN OTW 2.75 x 18 stent ([id number]) was prepped and advanced across the Mid LAD . The stent was deployed at 13 ZAY for 0:00 (min:sec) . 11:51:27 Stent catheter was removed intact over wire. 11:51:28 Wire removed. 11:51:28 Guide catheter removed. 11:52:32 EXOSEAL 6Fr (EX600) opened to sterile field. 11:53:16 Sheath removed intact; hemostasis achieved with Exoseal to the Right Femoral artery. 11:53:22 Fluoroscopy time 12.60 minutes. :53:26 Fluoroscopy dose: 1594 mGy 11:53:26 Flurop Dose total: 1594 11:53:40 Dose Area Product 17327 mGy/cm. 11:53:41 Procedure ended.(Physican Out) 11:54:07 Contrast amount:Isovue 370 115ml. 11:54:10 Maximum allowable dose exceeded? No. 11:54:11 Sharps counted by scrub and verified by R.N. 11:54:16 Post-op/insertion site Left Femoral artery dressed using a 4 x 4 and Tegaderm. 11:54:22 Post left femerol artery:stable, soft, clean and dry 11:54:24 Post Procedure Pulses reassessed and unchanged 11:54:27 Post procedure: right dorsailis pedis pulse 2+ Normal; easily identifiable; not easily obliterated. 11:54:31 Post-procedure physical assessment completed. ASA score P 2 - A patient with mild systemic disease as per Jean-Pierre Caba MD. 11:54:43 Post procedure rhythm: sinus tachycardia 11:54:46 Estimated blood loss: 10 ml 11:54:48 Post procedure instruction explained to patient.Patient verbalizes understanding. 11:54:48 Patient needs reinforcement of post procedure teaching. 11:55:13 Procedure type changed to Cath procedure, Diagnostic procedure, Sedation Charges, Moderate Sedation up to 45 minutes, PCI procedure, AMI/SVG/CLASSIFIER TENDER PTCA or Stent, AMI-BMS/RAHEEL Initial, Hemochron ACT Test 11:56:31 Procedure and supply charges have been captured, reviewed, submitted and are correct. 11:56:34 Integrilin Drip (75mg/100ml) 16.8 ml/hr I.V. drip was administered by Colby Jimenez RN; for antiplatelet therapy; Verbal order read back and verified. 11:56:35 Procedure Complication : No complications 11:56:39 [facility] Findings: MVD- PCI performed (see procedure note) 11:56:41 Operative report dictated upon procedure completion. 11:56:41 See physician's report for complete and final results. 11:56:50 Effient 60 mg P.O. was administered by Colby Jimenez RN; for antiplatelet therapy; Verbal order read back and verified. 11:57:02 Report given to ICU. 11:57:06 Patient transfered to ICU with Bed. 11:57:08 Procedure ended. 11:57:08 Full Disclosure recording stopped 11:58:12 ACC-PCI Only Patient was given prescriptions, or instructed by Jean-Pierre Caba MD to start/continue the following medications upon discharge: Effient 11:58:20 Vital chart was stopped 11:58:22 End room use (Document Last) 11:59:32 End room use (Document Last) 11:59:48 End room use (Document Last) 12:00:12 ACT drawn and resulted at 291 seconds. (normal therapeutic range 180-240 seconds). Intervention Summary Intervention Notes Time ActionType Lesion and Equipment Action# Pressure Duration Attributes Used 11:28:36 Discard EUPHORA 2.5 x Balloon 20 Balloon ([id number]) 11:33:07 Inflate Prox LAD EMERGE OTW 1 10 00:00 balloon 2.5 x 15 balloon ([id number]) 11:33:36 Reinflate Prox LAD EMERGE OTW 2 10 00:00 balloon 2.5 x 15 balloon ([id number]) 11:33:57 Reinflate Prox LAD EMERGE OTW 3 12 00:00 balloon 2.5 x 15 balloon ([id number]) 11:40:20 Reinflate Prox LAD EMERGE OTW 4 12 00:00 balloon 2.5 x 15 balloon ([id number]) 11:40:53 Reinflate Prox LAD EMERGE OTW 5 13 00:00 balloon 2.5 x 15 balloon ([id number]) 11:41:23 Reinflate Prox LAD EMERGE OTW 6 13 00:00 balloon 2.5 x 15 balloon ([id number]) 11:49:49 Place stent Mid LAD TUAN OTW 2.75 1 13 00:00 x 18 stent ([id number]) Device Usage Item Name Manufacture Quantity Catalog Number Hospital Part Current M inimal Lot# / Charge Number Stock Stock Serial# Code ACIST Syringe Acist 1 91870 566004 830484 513852 2 0 (83194) Medical Systems Inc Bag Decanter Microtek 1 897407 71857 171991 5 () Medical Inc. Medline Cath Medline 1 [id number] 923322 36185 076333 5 Pack ([id number]) ACIST Hand Acist 1 89145 521012 109280 470844 5 Control Medical (89453) Systems Inc ACIST Acist 1 52483 100833 509963 005991 5 Manifold Medical (06382) Systems Inc DIAGNOSTIC Cardinal 1 XF4195 303012 13438 874729 3 0 Multipack 5Fr Health catheter set (AY7476) EMERALD Guide Cardinal 1 502-926 592065 670110 021611 5 Wire Health (502455) INFLATOR Merit 1 XU4378 037656 959392 936966 1 5 Merit Medical BasixCompak (XX0061) TUBING High Merit 1 [id number] 277680 70597 458995 1 0 Pressure Medical Extension Tubing (Caba) ([id number]) BMW 300cm [place] 1 [id number] 721339 837302 187422 5 Phelps 2 J Vascular wire (0606628A) MULTIPACK Cardinal 1 189737 5 3DRC 5Fr Health catheter MULTIPACK JL Cardinal 1 972622 5 4.0 5Fr Health catheter GUIDE 6FR Cardinal 1 [id number] 336670 096456 164195 1 0 XBLAD 3.5 Health catheter (64982124) World of Good 1 32009-214905 639030 529122 834863 5 EUPHORA 2.5 x Medtronic 1 [id number] 239797 421110 448706 5 [id number] 20 Balloon (BRR9866F) EMERGE OTW [place] 1 [id number] 340807 380659 487477 5 [id number] 2.5 x 15 Scientific balloon ([id number]) TUAN OTW 2.75 Medtronic 1 [id number] 463302 0448546 017262 5 [id number] x 18 stent ([id number]) SHEATH 6FR Terumo 1 JQK026 912993 839026 056901 4 0 [place] (XSL009) EXOSEAL 6Fr Cardinal 1 EX600 665633 349629 227346 1 0 (EX600) Health Signature Audit [place] Stage Time Signature Unsigned Intra-Procedure 12/17/2019 Vivien Hermosillo 11:59:32 AM RT(R) Intra-Procedure 12/17/2019 Colby 11:59:48 AM Barbara MEDINA Intra-Procedure 12/17/2019 Jean-Pierre Caba MD 12:03:52 PM [place] [place] [address]
--- NOTE | 2019-12-17 10:45 | NUR ---
CONSENT FOR INSTRUCTIONAL MATERIAL DIRECTOR AND BLOOD EXPL TO PT VERB UNDER. SIGNED/WITNESSED
[2019-12-17 10:50] LABS: BASOPHILS 0.4 % (0-2); EOSINOPHILS 4.4 % (0-7); IMMATURE GRANULOCYTES 0.4 % (0-5); LYMPHOCYTES 35.2 % (15-50); MCHC 31.7 g/dL (31.0-37.0); MCV 97.9 fL (80.0-100.0); MEAN PLATELET VOLUME 11.6 fL (7.4-10.4); MONOCYTES 10.1 % (2-11); NEUTROPHILS 49.5 % (40-80); RBC 4.19 10x6/uL (4.00-5.40); RDW 13.6 % (11.5-14.5); WBC 11.4 10x3/uL (4.8-10.8)
--- NOTE | 2019-12-17 10:50 | NUR ---
DR SANDOVAL AT BS
[2019-12-17 10:52] LABS: PLATELET COUNT 325 10x3/uL (130-400)
[2019-12-17 10:57] LABS: APTT 24.7 SECONDS (22.8-39.4); INR 0.94 (0.85-1.17); PROTIME 12.6 SECONDS (11.6-15.0)
[2019-12-17 10:58] LABS: CALC OSMOLALITY 280 mosm/kg (275-300); CALCIUM 8.8 mg/dL (8.5-10.1); CARBON DIOXIDE 23.1 mmol/L (21.0-32.0); CHLORIDE - SERUM 102 mmol/L (98-107); CREATININE - SERUM 0.9 mg/dL (0.6-1.3); GLUCOSE 167 mg/dL (74-106); POTASSIUM - SERUM 3.7 mmol/L (3.5-5.1); SODIUM 139 mmol/L (136-145); UREA NITROGEN 11 mg/dL (7-18); eGFR NON AFRICAN AMERICAN 71 mL/min (90-120)
--- NOTE | 2019-12-17 10:59 | NUR ---
MINE CAR REPAIRER HERE; TRANSPORTED STABLE
[2019-12-17 11:15] LABS: ALBUMIN 3.6 g/dL (3.4-5.0); ALKALINE PHOSPHATASE 77 U/L (30-120); ALT (SGPT) 42 U/L (10-68); BILIRUBIN - TOTAL 0.38 mg/dL (0.2-1.3); CKMB 0.3 U/L (0.0-3.6); CREATINE KINASE 69 UL (21-215); MAGNESIUM - SERUM 1.9 mg/dL (1.8-2.4); PROTEIN - SERUM 7.7 g/dL (6.4-8.2); TROPONIN-I < 0.017 ng/mL (0.000-0.060)
--- NOTE | 2019-12-17 12:31 | NUR ---
PT ARRIVED ON UNIT FROM CONTROL ANALYST, ALERT AND ORIENTED, ON 3L NC WITH 97% O2 SAT, LEFT GROIN EXOCEL, NO SWELLING OR HEMETOMA NOTED, ALL PPP, VSS, WILL CON'T TO MONITOR
--- NOTE | 2019-12-17 15:20 | NUR ---
REASSESSMENT COMPLETE, NO CHANGES NOTED, PT RESTING AT THIS TIME, VSS, CALL LIGHT IN REACH
--- NOTE | 2019-12-17 17:00 | NUR ---
FAMILY AT BEDSIDE, UPDATE GIVEN, WILL CON'T TO MONITOR
--- NOTE | 2019-12-17 19:00 | NUR ---
REPORT RECEVEID FROM THE OFF GOING RN. SEE ASSESSMENT IN THE PTS FLOW SHEET. PT A&O X4. PT IN A PLEASANT MOOD. VSS AT THIS TIME. DENIES PAIN AT THIS VALERY. BILATERAL GROIN SOFT TO PLAPATATION AND SHOWS NO S/SX OF HEMATOMA NOTED. INTEGRALIN INFUSING. SEE MAR. BILATERAL PULSES PALPABLE. CALL LIGHT IN REACH. WILL CONT POC.
--- NOTE | 2019-12-17 19:22 | MORECARE ---
CASE MANAGEMENT DISCHARGE SUMMARY PATIENT: BEKAH ROQUE UNIT: [id number] ADM DATE: 12/17/19 AGE: 44 : [birth year] SEX: F ROOM/BED: D.2307 AUTHOR: JONATHAN FRANCOIS PHYSICIAN: REFERRING PHYSICIAN: DAR SANDOVAL M.D. DATE OF SERVICE: 12/17/19 Discharge Plan Patient Name: BEKAH ROQUE Facility: [facility]:[place] : 1975 Planned Disposition: Home Anticipated Discharge Date: Discharge Date: Expected LOS: Initial Reviewer: [email or web address] Initial Review Date: 12/17/2019 Generated: 12/17/19 8:21 pm Patient Name: BEKAH ROQUE Page 47578 at 1922 All edits/amendments must be made on the electronic document DICTATION DATE: 12/17/191920 SERVICE LINE LAYER: CORRINA 12/17/191920 RPT#: [id number] DC DATE: STATUS: ADM IN [facility] [address] [place] [address] END OF REPORT
--- NOTE | 2019-12-17 19:29 | MORECARE ---
CASE MANAGEMENT DISCHARGE SUMMARY PATIENT: BEKAH ROQUE UNIT: [id number] ADM DATE: 12/17/19 AGE: 44 : [birth year] SEX: F ROOM/BED: D.2307 AUTHOR: PRISCILA,DOC PHYSICIAN: REFERRING PHYSICIAN: DAR SANDOVAL M.D. DATE OF SERVICE: 12/17/19 Discharge Plan Patient Name: BEKAH ROQUE Facility: [facility]:[place] : 1975 Planned Disposition: Home Anticipated Discharge Date: Discharge Date: Expected LOS: Initial Reviewer: [email or web address] Initial Review Date: 12/17/2019 Generated: 12/17/19 8:28 pm Comments DCP- Discharge Planning Updated by [email or web address]: Kemi Villa on 12/17/19 6:[address] Patient Name: BEKAH ROQUE Admission Status: ER Accout number: [id number] Admission Date: 12-17-2019 : 1975 Admission Diagnosis: Attending: DAR SANDOVAL Current LOS: 1 Anticipated DC Date: Planned Disposition: Home Primary Insurance: [employer] OUT OF STATE Discharge Planning Comments: CM met with patient to complete initial dc planning assessment. CM educated patient on the CM role and verbal consent given by patient to complete assessment. Patient lives at home with . At discharge patient plans to return home and feels this is a safe discharge. CM discussed availability of home health, rehab services, and medical equipment. Patient denied known discharge needs at this time. CM will continue to follow and will assist as needed with dc plans/needs. Trimmer Tailer: Kemi Villa DCPIA - Discharge Planning Initial Assessment Updated by [email or web address]: Kemi Villa on 12/17/19 7:21 pm * Is the patient Alert and Oriented? Yes * How many steps to enter\exit or inside your home? 12-14 * PCP NO PCP - INFORMATION GIVEN ON PHYSICIANS ACCEPTING NEW PATIENTS * Pharmacy [facility] * Preadmission Environment Home with Family * ADLs Independent * Equipment None * List name and contact numbers for known caregivers / representatives who currently or will assist patient after discharge: YONNY CHENG SO- [phone] * Verbal permission to speak to the caregivers and representatives has been obtained from the patient. Yes * Community resources currently utilized None * Additional services required to return to the preadmission environment? No * Can the patient safely return to the preadmission environment? Yes * Has this patient been hospitalized within the prior 30 days at any hospital? No Last DP export: 12/17/19 6:22 p Patient Name: BEKAH ROQUE Page 18198 at 1929 All edits/amendments must be made on the electronic document DICTATION DATE: 12/17/191927 RAND BUTTING MACHINE OPERATOR: CORRINA 12/17/191927 RPT#: [id number] DC DATE: STATUS: ADM IN [facility] [address] [place] [address] END OF REPORT
--- NOTE | 2019-12-17 19:30 | NUR ---
PT REQUESTED A LEMON JENNIFER. IT WAS PROVIDED. NO OTHER NEEDS AT THIS TIME. WILL CONT POC.
--- NOTE | 2019-12-17 21:54 | NUR ---
PULSES REMAIN PALPABLE. GROIN REMAINS SOFT TO PALPATATION AND SHOWS NO S/SX OF HEMATOMA NOTED. CALL LIGHT IN REACH. WILL CONT POC.
--- NOTE | 2019-12-17 23:49 | NUR ---
PT ASSISTED TO THE BEDSIDE COMMOND. NORMAL STEADY GAIT. PT TOLERATED WELL. PT VOIDED CLEAR YELLOW URINE. PT PERFORMED SELF PERICARE WITH NO ISSUES. CALL LIGHT IN REACH. WILL CONT POC.
[2019-12-18] VITALS: BP 160/98
[2019-12-18 01:00] VITALS: BP 159/97
[2019-12-18 02:00] VITALS: BP 145/86
[2019-12-18 03:00] VITALS: BP 141/85
--- NOTE | 2019-12-18 03:16 | NUR ---
PT RESTING WITH HER EYES CLOSED WITH NO S/SX OF DISTRESS/DISCOMFORT NOTED. VSS. CALL LIGHT IN REACH. WILL CONT POC.
[2019-12-18 04:00] VITALS: BP 156/99
[2019-12-18 05:00] VITALS: BP 152/89
--- NOTE | 2019-12-18 07:10 | NUR ---
REPORT RECIEVED, SHIFT ASSESSMENT COMPLETE, PT IS ALERT AND ORIENTED, ON RA WITH 97% O2 SAT. ALL PPP, VSS, CALL LIGHT IN REACH
[2019-12-18] MEDS ORDERED: LISINOPRIL2.5 MG PO (10:40)
[2019-12-18] MEDS ORDERED: COREG 3.1253.125 MG PO (10:41)
[2019-12-18] MEDS ORDERED: EFFIENT10 MG PO (10:41)
--- NOTE | 2019-12-18 11:19 | NUR ---
DC INSTRUCTIONS GIVEN, IV DC'D CATH INTACT, PT WHEELED OUTSIDE
--- NOTE | 2019-12-18 21:02 | MORECARE ---
CASE MANAGEMENT DISCHARGE SUMMARY PATIENT: BEKAH ROQUE UNIT: [id number] ADM DATE: 12/17/19 AGE: 44 : [birth year] SEX: F ROOM/BED: D.2307 AUTHOR: PRISCILA,DOC PHYSICIAN: REFERRING PHYSICIAN: DAR SANDOVAL M.D. DATE OF SERVICE: 12/18/19 Discharge Plan Patient Name: BEKAH ROQUE Facility[facility]:[place] : 1975 Planned Disposition: Home Anticipated Discharge Date: Discharge Date: 12/18/2019 Expected LOS: Initial Reviewer: [email or web address] Initial Review Date: 12/17/2019 Generated: 12/18/19 10:02 pm DCP- Discharge Planning Updated by [email or web address]: Kemi Villa on 12/17/19 6:[address] Patient Name: BEKAH ROQUE Admission Status: ER Accout number: [id number] Admission Date: 12-17-2019 : 1975 Admission Diagnosis: Attending: DAR SANDOVAL Current LOS: 1 Anticipated DC Date: Planned Disposition: Home Primary Insurance: [employer] OUT OF STATE Discharge Planning Comments: CM met with patient to complete initial dc planning assessment. CM educated patient on the CM role and verbal consent given by patient to complete assessment. Patient lives at home with . At discharge patient plans to return home and feels this is a safe discharge. CM discussed availability of home health, rehab services, and medical equipment. Patient denied known discharge needs at this time. CM will continue to follow and will assist as needed with dc plans/needs. Etl Analyst: Kemi Villa DCPIA - Discharge Planning Initial Assessment Updated by [email or web address]: Kemi Villa on 12/17/19 7:21 pm * Is the patient Alert and Oriented? Yes * How many steps to enter\exit or inside your home? 12-14 * PCP NO PCP - INFORMATION GIVEN ON PHYSICIANS ACCEPTING NEW PATIENTS * Pharmacy [facility] * Preadmission Environment Home with Family * ADLs Independent * Equipment None * List name and contact numbers for known caregivers / representatives who currently or will assist patient after discharge: YONNY CHENG SO- [phone] * Verbal permission to speak to the caregivers and representatives has been obtained from the patient. Yes * Community resources currently utilized None * Additional services required to return to the preadmission environment? No * Can the patient safely return to the preadmission environment? Yes * Has this patient been hospitalized within the prior 30 days at any hospital? No Last DP export: 12/17/19 6:29 p Patient Name: BEKAH ROQUE Page 96027 at 210 All edits/amendments must be made on the electronic document DICTATION DATE: 12/18/192101 FORGING ROLL OPERATOR: CORRINA 12/18/192101 RPT#: [id number] DC DATE:12/18/19 STATUS: DIS IN [facility] [address] [place] [address] END OF REPORT
== END 2019-12-18 11:24 | disposition home or self-care (01) | DRG 247 ==
LOC: D.ER 10:39 → D.ICU 12:10 → D.ER 13:02 → D.ICU 13:02
PROVIDERS: Emergency Medicine; ADMIT Internal Medicine Cardiovascular Disease; ATTEND Internal Medicine Cardiovascular Disease
PROC: B2111ZZ Fluoroscopy of Multiple Coronary Arteries using Low Osmolar Contrast (ICD-10-PCS; 2019-12-17)
PROC: B2151ZZ Fluoroscopy of Left Heart using Low Osmolar Contrast (ICD-10-PCS; 2019-12-17)
PROC: 027034Z Dilation of Coronary Artery, One Artery with Drug-eluting Intraluminal Device, Percutaneous Approach (ICD-10-PCS; principal; 2019-12-17 10:55)
PROC: 4A023N7 Measurement of Cardiac Sampling and Pressure, Left Heart, Percutaneous Approach (ICD-10-PCS; 2019-12-17 10:55)
DX: I21.09 ST elevation (STEMI) myocardial infarction involving other coronary artery of anterior wall (principal); I10 Essential (primary) hypertension; I25.10 Atherosclerotic heart disease of native coronary artery without angina pectoris

== ENCOUNTER 2019-12-18 20:26 | Emergency (ER) | payer BC ==
[~2019-12-18 20:26] MED LIST changes: +COREG 3.1253.125 MG PO; +EFFIENT10 MG PO; +LISINOPRIL2.5 MG PO
[2019-12-18 20:53] VITALS: Ht 180.3 cm
[2019-12-18 21:24] LABS: BASOPHILS 0.4 % (0-2); EOSINOPHILS 1.9 % (0-7); HEMATOCRIT 37.5 % (36.0-48.0); HEMOGLOBIN 11.1 g/dL (12-16); IMMATURE GRANULOCYTES 2.2 % (0-5); LYMPHOCYTES 48.3 % (15-50); MCH 31.4 pg (26.0-34.0); MCHC 29.6 g/dL (31.0-37.0); MCV 105.9 fL (80.0-100.0); MEAN PLATELET VOLUME 12.2 fL (7.4-10.4); MONOCYTES 7.2 % (2-11); PLATELET COUNT 228 10x3/uL (130-400); RBC 3.54 10x6/uL (4.00-5.40); RDW 13.7 % (11.5-14.5)
[2019-12-18 21:25] LABS: CHLORIDE - SERUM 103 mmol/L (98-107); SODIUM 144 mmol/L (136-145); UREA NITROGEN 10 mg/dL (7-18)
[2019-12-18 21:33] LABS: CALC OSMOLALITY 301 mosm/kg (275-300); CARBON DIOXIDE 15.3 mmol/L (21.0-32.0); CREATININE - SERUM 1.5 mg/dL (0.6-1.3); GLUCOSE 394 mg/dL (74-106); POTASSIUM - SERUM 4.3 mmol/L (3.5-5.1); eGFR NON AFRICAN AMERICAN 40 mL/min (90-120)
[2019-12-18 21:50] LABS: ALBUMIN 2.8 g/dL (3.4-5.0); ALKALINE PHOSPHATASE 76 U/L (30-120); ALT (SGPT) 192 U/L (10-68); BILIRUBIN - TOTAL 0.18 mg/dL (0.2-1.3); CREATINE KINASE 805 UL (21-215); PROTEIN - SERUM 6.2 g/dL (6.4-8.2)
[2019-12-18 21:52] LABS: TROPONIN-I 66.039 ng/mL (0.000-0.060)
== END 2019-12-19 00:35 ==
LOC: D.ER 20:26
PROVIDERS: Emergency Medicine
DX: I21.9 Acute myocardial infarction, unspecified (principal); T82.855A Stenosis of coronary artery stent, initial encounter; I10 Essential (primary) hypertension; Z95.5 Presence of coronary angioplasty implant and graft